=== PATIENT | female | born 1930 | race Caucasian/White ===

== ENCOUNTER 2016-08-29 09:31 | Outpatient (RCR) | payer MEDICARE ==
[2016-08-22 10:45] LABS: BASOPHILS # (AUTO) 0.1 10^3/uL (0.0-0.1); BASOPHILS % (AUTO) 2 % (0-10); EOSINOPHILS # (AUTO) 0.5 10^3/uL (0.0-0.3); EOSINOPHILS % (AUTO) 9 % (0-10); LYMPHOCYTES # (AUTO) 1.4 X 10^3 (1.0-4.0); LYMPHOCYTES % (AUTO) 30 % (12-44); MEAN CORPUSCULAR HEMOGLOBIN 30 PG (25-34); MEAN CORPUSCULAR HGB CONC 33 G/DL (32-36); MEAN CORPUSCULAR VOLUME 91 FL (80-99); MEAN PLATELET VOLUME 11.3 FL (7.4-10.4); MONOCYTES # (AUTO) 0.6 X 10^3 (0.0-1.0); MONOCYTES % (AUTO) 12 % (0-12); NEUTROPHILS # (AUTO) 2.3 X 10^3 (1.8-7.8); NEUTROPHILS % (AUTO) 47 % (42-75); PLATELET COUNT 152 10^3/uL (130-400); RED BLOOD COUNT 4.09 10^6/uL (4.35-5.85); RED CELL DISTRIBUTION WIDTH 14.3 % (10.0-14.5); WHITE BLOOD COUNT 4.8 10^3/uL (4.3-11.0)
[2016-08-22 11:01] LABS: ALBUMIN 3.1 GM/DL (3.2-4.5); BILIRUBIN,TOTAL 0.9 MG/DL (0.1-1.0); CREATININE SERUM 1.15 MG/DL (0.60-1.30); POTASSIUM 4.1 MMOL/L (3.6-5.0); TOTAL PROTEIN 5.2 GM/DL (6.4-8.2)
== END 2016-11-20 | disposition home or self-care (01) ==
LOC: ONC 09:31
PROVIDERS: ATTEND Internal Medicine Hematology & Oncology
DX: Z08 Encounter for follow-up examination after completed treatment for malignant neoplasm (principal); Z85.3 Personal history of malignant neoplasm of breast; I10 Essential (primary) hypertension
CPT/HCPCS: 36415; 80053; 85025; 86300; 99213

== ENCOUNTER 2017-09-04 09:47 | Outpatient (RCR) | payer MEDICARE ==
[2017-08-28 14:21] LABS: BASOPHILS # (AUTO) 0.1 10^3/uL (0.0-0.1); BASOPHILS % (AUTO) 1 % (0-10); EOSINOPHILS # (AUTO) 0.1 10^3/uL (0.0-0.3); EOSINOPHILS % (AUTO) 3 % (0-10); HEMATOCRIT 38 % (35-52); HEMOGLOBIN 12.6 G/DL (11.5-16.0); LYMPHOCYTES # (AUTO) 1.3 X 10^3 (1.0-4.0); LYMPHOCYTES % (AUTO) 29 % (12-44); MEAN CORPUSCULAR HEMOGLOBIN 29 PG (25-34); MEAN CORPUSCULAR HGB CONC 33 G/DL (32-36); MEAN CORPUSCULAR VOLUME 89 FL (80-99); MEAN PLATELET VOLUME 11.4 FL (7.4-10.4); MONOCYTES # (AUTO) 0.4 X 10^3 (0.0-1.0); MONOCYTES % (AUTO) 10 % (0-12); NEUTROPHILS # (AUTO) 2.5 X 10^3 (1.8-7.8); NEUTROPHILS % (AUTO) 57 % (42-75); PLATELET COUNT 156 10^3/uL (130-400); RED BLOOD COUNT 4.31 10^6/uL (4.35-5.85); RED CELL DISTRIBUTION WIDTH 14.4 % (10.0-14.5); WHITE BLOOD COUNT 4.3 10^3/uL (4.3-11.0)
[2017-08-28 14:38] LABS: ALBUMIN 3.3 GM/DL (3.2-4.5); BILIRUBIN,TOTAL 0.8 MG/DL (0.1-1.0); CALCIUM 9.4 MG/DL (8.5-10.1); CREATININE SERUM 1.25 MG/DL (0.60-1.30); POTASSIUM 4.1 MMOL/L (3.6-5.0); TOTAL PROTEIN 5.8 GM/DL (6.4-8.2)
== END 2017-11-26 | disposition home or self-care (01) ==
LOC: ONC 09:47
PROVIDERS: ATTEND Internal Medicine Hematology & Oncology
DX: Z08 Encounter for follow-up examination after completed treatment for malignant neoplasm (principal); Z85.3 Personal history of malignant neoplasm of breast; I10 Essential (primary) hypertension; Z79.899 Other long term (current) drug therapy; Z92.3 Personal history of irradiation
CPT/HCPCS: 36415; 80053; 85025; 86300; 99213

== ENCOUNTER → 2018-08-27 | Outpatient (CLI) | payer MEDICARE | LOC: RAD 09:33 | PROVIDERS: ATTEND Internal Medicine Hematology & Oncology | DX: Z12.31 Encounter for screening mammogram for malignant neoplasm of breast (principal) | CPT/HCPCS: 77067 ==

== ENCOUNTER 2018-09-04 12:55 | Outpatient (RCR) | payer MEDICARE ==
[2018-08-21 10:07] LABS: BASOPHILS % (AUTO) 1 % (0-10); EOSINOPHILS # (AUTO) 0.2 10^3/uL (0.0-0.3); EOSINOPHILS % (AUTO) 6 % (0-10); HEMATOCRIT 39 % (35-52); HEMOGLOBIN 12.9 G/DL (11.5-16.0); LYMPHOCYTES # (AUTO) 1.3 X 10^3 (1.0-4.0); LYMPHOCYTES % (AUTO) 31 % (12-44); MEAN CORPUSCULAR HEMOGLOBIN 29 PG (25-34); MEAN CORPUSCULAR HGB CONC 33 G/DL (32-36); MEAN CORPUSCULAR VOLUME 88 FL (80-99); MEAN PLATELET VOLUME 11.6 FL (7.4-10.4); MONOCYTES # (AUTO) 0.6 X 10^3 (0.0-1.0); MONOCYTES % (AUTO) 13 % (0-12); NEUTROPHILS # (AUTO) 2.2 X 10^3 (1.8-7.8); NEUTROPHILS % (AUTO) 50 % (42-75); PLATELET COUNT 149 10^3/uL (130-400); WHITE BLOOD COUNT 4.4 10^3/uL (4.3-11.0)
[2018-08-21 10:19] LABS: ALBUMIN 3.3 GM/DL (3.2-4.5); BILIRUBIN,TOTAL 0.8 MG/DL (0.1-1.0); CALCIUM 9.6 MG/DL (8.5-10.1); CREATININE SERUM 1.17 MG/DL (0.60-1.30); POTASSIUM 4.1 MMOL/L (3.6-5.0); TOTAL PROTEIN 5.9 GM/DL (6.4-8.2)
[2018-10-23] MEDS ORDERED: LISI-552 PO (09:05)
[2018-10-23] MEDS ORDERED: ALPR0.254 PO (09:05)
[2018-10-23] MEDS ORDERED: POTA10CA43 PO (09:05)
[2018-10-23] MEDS ORDERED: METO-387 PO (09:07)
[2018-10-23] MEDS ORDERED: CHOL200025 PO (09:07)
[2018-10-23] MEDS ORDERED: ASPI-983 PO (09:07)
[2018-10-23] MEDS ORDERED: AMLO2.5T4 PO (09:07)
[2018-10-31] MEDS ORDERED: POTA10CA43 PO (12:29)
[2018-10-31] MEDS ORDERED: METO-370 PO (12:29)
[2018-10-31] MEDS ORDERED: FURO40TA4 PO (12:29)
[2018-10-31] MEDS ORDERED: MAGN400T6 PO (12:29)
== END 2018-11-19 | disposition home or self-care (01) ==
LOC: ONC 12:55
PROVIDERS: ATTEND Internal Medicine Hematology & Oncology
DX: Z08 Encounter for follow-up examination after completed treatment for malignant neoplasm (principal); Z85.3 Personal history of malignant neoplasm of breast; I10 Essential (primary) hypertension; Z79.899 Other long term (current) drug therapy; Z92.3 Personal history of irradiation
CPT/HCPCS: 36415; 80053; 85025; 99213

== ENCOUNTER 2018-10-23 03:54 | Inpatient (IN) | payer MEDICARE ==
[2018-10-23] VITALS (7 sets, daily range): BP systolic 111–193; BP diastolic 56–92
[~2018-10-23] VITALS: Ht 152.4 cm; Wt 52.7 kg
[2018-10-23] MEDS ORDERED: NS IV 1000 ML 1,000 ML IV ONE (04:16)
[2018-10-23 04:28] LABS: BASOPHILS % (AUTO) 0 % (0-10); EOSINOPHILS # (AUTO) 0.1 10^3/uL (0.0-0.3); EOSINOPHILS % (AUTO) 3 % (0-10); HEMATOCRIT 43 % (35-52); LYMPHOCYTES # (AUTO) 0.5 X 10^3 (1.0-4.0); LYMPHOCYTES % (AUTO) 21 % (12-44); MEAN CORPUSCULAR HEMOGLOBIN 29 PG (25-34); MEAN CORPUSCULAR HGB CONC 33 G/DL (32-36); MEAN CORPUSCULAR VOLUME 89 FL (80-99); MEAN PLATELET VOLUME 12.1 FL (7.4-10.4); MONOCYTES % (AUTO) 0 % (0-12); NEUTROPHILS # (AUTO) 1.9 X 10^3 (1.8-7.8); NEUTROPHILS % (AUTO) 76 % (42-75); PLATELET COUNT 101 10^3/uL (130-400); RED CELL DISTRIBUTION WIDTH 14.9 % (10.0-14.5); WHITE BLOOD COUNT 2.5 10^3/uL (4.3-11.0)
[2018-10-23] MEDS ORDERED: ACETAMINOPHEN 500 MG TAB (TYLENOL) PO ONE (04:30)
[2018-10-23 04:45] LABS: INR 1.1 (0.8-1.4); PROTHROMBIN TIME PATIENT 14.7 SEC (12.2-14.7)
[2018-10-23 04:54] LABS: ALBUMIN 3.4 GM/DL (3.2-4.5); BILIRUBIN,TOTAL 1.1 MG/DL (0.1-1.0); CALCIUM 9.4 MG/DL (8.5-10.1); CREATININE SERUM 1.19 MG/DL (0.60-1.30); POTASSIUM 3.8 MMOL/L (3.6-5.0); TOTAL PROTEIN 6.3 GM/DL (6.4-8.2)
[2018-10-23 05:05] LABS: BILIRUBIN,URINE NEGATIVE (NEGATIVE); CLARITY,URINE CLEAR; COLOR,URINE YELLOW; GLUCOSE, URINE (UA) NEGATIVE (NEGATIVE); KETONES,URINE NEGATIVE (NEGATIVE); LEUKOCYTE ESTERASE ,URINE 1+ (NEGATIVE); NITRITE,URINE NEGATIVE (NEGATIVE); PH,URINE 5 (5-9); PROTEIN,URINE 2+ (NEGATIVE); UROBILINOGEN,URINE NORMAL (NORMAL)
[2018-10-23 05:09] LABS: BACTERIA,URINE TRACE /HPF
[2018-10-23] MEDS ORDERED: LACTATED RINGERS 1,000 ML IV ONE (05:17)
[2018-10-23] MEDS ORDERED: RT-ALBUTEROL/IPRATROPIUM 3 ML (DUONEB) VIAL INH ONE (05:30)
[2018-10-23] MEDS ORDERED: IBUPROFEN TABLET 200 MG TAB PO ONE ×2 (05:46→06:00)
[2018-10-23] MEDS ORDERED: PIPERACILLIN/TAZOBACTAM (BULK) 4.5 GM in NS (IVPB) 100 ML IV ONE (06:30)
--- NOTE | 2018-10-23 06:33 | ED General ---
General Chief Complaint: Fever-Adult/Adol Stated Complaint: NAUSEA,CHILLING Nursing Triage Note: WOKE UP WITH CEVER AND CHILLS TONIGHT, STATES SHE HAS BEEN SICK (NAUSEA) FOR A COUPLE OF DAYS. Nursing Sepsis Screen: No Definite Risk Source of Information: Patient Exam Limitations: No Limitations History of Present Illness Date Seen by Provider: Oct 23, 2018 Time Seen by Provider: 04:07 Initial Comments This 87-year-old woman presents to the emergency room with intense fever and chills. She has been nauseated for a couple of days and then became acutely ill with a fever and chills tonight. She denies any significant pain, vomiting, or cough. She is short of breath and wheezing. She is mildly hypoxic on arrival. She denies any history of pulmonary problems. Patient was mildly hypoxic and was provided nasal cannula supplemental oxygen. Respiratory symptoms improved after DuoNeb treatment. Allergies and Home Medications Allergies Coded Allergies: Severiano Known Allergies (Verified Allergy, Unknown, 09/08/05) Home Medications Alprazolam 0.25 Mg Tablet, 0.5 TAB PO DAILY PRN for ANXIETY, (Reported) Amlodipine Besylate 2.5 Mg Tablet, 2.5 MG PO DAILY, (Reported) Aspirin 81 Mg Tablet.dr, 81 MG PO DAILY, (Reported) Cholecalciferol (Vitamin D3) 2,000 Unit Tablet, 2,000 UNIT PO DAILY, (Reported) Lisinopril 20 Mg Tablet, 20 MG PO HS, (Reported) Metoprolol Succinate 25 Mg Tab.er.24h, 25 MG PO DAILY, (Reported) Potassium Chloride 10 Meq Capsule.er, 10 MEQ PO Q48H, (Reported) Patient Home Medication List Home Medication List Reviewed: Yes Review of Systems Review of Systems Constitutional: see HPI EENTM: no symptoms reported Respiratory: see HPI Cardiovascular: no symptoms reported Gastrointestinal: see HPI Genitourinary: no symptoms reported : No Skin: no symptoms reported Psychiatric/Neurological: No Symptoms Reported Hematologic/Lymphatic: No Symptoms Reported Immunological/Allergic: no symptoms reported Past Eeyorar-Kokgxv-Uxoggz Hx Past Med/Social Hx: Reviewed and Corrections made Patient Social History Alcohol Use: Denies Use Recreational Drug Use: No 2nd Hand Smoke Exposure: No Recent Foreign Travel: No Contact w/Someone Who Travel: No Recent Infectious Disease Expo: No Physical Abuse: No Sexual Abuse: No Mistreated: No Fear: No Past Medical History Surgeries: No Respiratory: No Cardiac: Yes Atrial Fibrillation, Hypertension Neurological: No : No Reproductive Disorders: No Genitourinary: No Gastrointestinal: No Musculoskeletal: No Endocrine: No HEENT: No Cancer: No Psychosocial: No Physical Exam Vital Signs Vital Signs - First Documented 10/23/18 10/23/18 04:00 04:05 Temp 101.8 Pulse 104 Resp 26 B/P (MAP) 193/92 (125) Pulse Ox 96 O2 Delivery Nasal Cannula O2 Flow Rate 3.00 FiO2 96 Capillary Refill : Less Than 3 Seconds Height, Weight, BMI Height: 5'" Weight: 120lbs. oz. 54.831079uu; BMI Method:Stated General Appearance: WD/WN, Moderate Distress HEENT: PERRL/EOMI, Normal ENT Inspection, Pharynx Normal Neck: Normal Inspection Respiratory: Decreased Breath Sounds, Wheezing (subtle), Other (tachypnea) Cardiovascular: No Edema, No Murmur Gastrointestinal: Normal Bowel Sounds, Non Tender, Soft Extremity: Normal Inspection, Non Tender, No Pedal Edema Neurologic/Psychiatric: Alert, Oriented x3, No Motor/Sensory Deficits, Normal Mood/Affect, bench molder II-XII Norm as Tested Skin: Normal Color, Warm/Dry Focused Exam Lactate Level 10/23/18 04:10: Lactic Acid Level 4.07*H 10/23/18 06:11: Lactic Acid Level 3.58*H Lactic Acid Level Progress/Results/Core Measures Suspected Sepsis Recent Fever Within 48 Hours: Yes Infection Criteria Present: Suspected New Infection New/Unexplained Altered Menta: No Sepsis Screen: No Definite Risk SIRS Temperature:102.5 Pulse: 107 Respiratory Rate: 17 Laboratory Tests 10/23/18 04:10: White Blood Count 2.5L Blood Pressure 160 /76 Mean: 104 10/23/18 04:10: Lactic Acid Level 4.07*H 10/23/18 06:11: Lactic Acid Level 3.58*H Laboratory Tests 10/23/18 04:10: Creatinine 1.19, INR Comment 1.1, Platelet Count 101L, Total Bilirubin 1.1H Results/Orders Lab Results Laboratory Tests Test 10/23/18 04:10 10/23/18 05:00 10/23/18 06:11 10/23/18 14:30 Range/Units White Blood Count 2.5 L 4.3-11.0 10^3/uL Red Blood Count 4.83 4.35-5.85 10^6/uL Hemoglobin 14.0 11.5-16.0 G/DL Hematocrit 43 35-52 % Mean Corpuscular Volume 89 80-99 FL Mean Corpuscular Hemoglobin 29 25-34 PG Mean Corpuscular Hemoglobin Concent 33 32-36 G/DL Red Cell Distribution Width 14.9 H 10.0-14.5 % Platelet Count 101 L 130-400 10^3/uL Mean Platelet Volume 12.1 H 7.4-10.4 FL Neutrophils (%) (Auto) 76 H 42-75 % Lymphocytes (%) (Auto) 21 12-44 % Monocytes (%) (Auto) 0 0-12 % Eosinophils (%) (Auto) 3 0-10 % Basophils (%) (Auto) 0 0-10 % Neutrophils # (Auto) 1.9 1.8-7.8 X 10^3 Lymphocytes # (Auto) 0.5 L 1.0-4.0 X 10^3 Monocytes # (Auto) 0.0 0.0-1.0 X 10^3 Eosinophils # (Auto) 0.1 0.0-0.3 10^3/uL Basophils # (Auto) 0.0 0.0-0.1 10^3/uL Prothrombin Time 14.7 12.2-14.7 SEC INR Comment 1.1 0.8-1.4 Activated Partial Thromboplast Time 31 24-35 SEC Sodium Level 143 135-145 MMOL/L Potassium Level 3.8 3.6-5.0 MMOL/L Chloride Level 109 H 98-107 MMOL/L Carbon Dioxide Level 20 L 21-32 MMOL/L Anion Gap 14 5-14 MMOL/L Blood Urea Nitrogen 15 7-18 MG/DL Creatinine 1.19 0.60-1.30 MG/DL Estimat Glomerular Filtration Rate 43 BUN/Creatinine Ratio 13 Glucose Level 109 H 70-105 MG/DL Lactic Acid Level 4.07 *H 3.58 *H 0.50-2.00 MMOL/L Calcium Level 9.4 8.5-10.1 MG/DL Corrected Calcium 9.9 8.5-10.1 MG/DL Total Bilirubin 1.1 H 0.1-1.0 MG/DL Aspartate Amino Transf (AST/SGOT) 25 5-34 U/L Alanine Aminotransferase (ALT/SGPT) 12 0-55 U/L Alkaline Phosphatase 106 40-136 U/L C-Reactive Protein High Sensitivity 0.82 H 0.00-0.50 MG/DL Total Protein 6.3 L 6.4-8.2 GM/DL Albumin 3.4 3.2-4.5 GM/DL Urine Color YELLOW Urine Clarity CLEAR Urine pH 5 5-9 Urine Specific [place] 1.010 L 1.016-1.022 Urine Protein 2+ H NEGATIVE Urine Glucose (UA) NEGATIVE NEGATIVE Urine Ketones NEGATIVE NEGATIVE Urine Nitrite NEGATIVE NEGATIVE Urine Bilirubin NEGATIVE NEGATIVE Urine Urobilinogen NORMAL NORMAL MG/DL Urine Leukocyte Esterase 1+ H NEGATIVE Urine RBC (Auto) 5+ H NEGATIVE Urine RBC 10-25 H /HPF Urine WBC 2-5 /HPF Urine Squamous Epithelial Cells 2-5 /HPF Urine Crystals NONE /LPF Urine Bacteria TRACE /HPF Urine Casts NONE /LPF Urine Mucus NEGATIVE /LPF Urine Culture Indicated CULTURE PENDING Troponin I 1.690 *H <0.028 NG/ML My Orders Orders - LAURE PEREZ MD Cbc With Automated Diff (10/23/18 04:05) Comprehensive Metabolic Panel (10/23/18 04:05) Blood Culture (10/23/18 04:05) Sputum Culture (10/23/18 04:05) Urinalysis (10/23/18 04:05) Urine Culture (10/23/18 04:05) Protime With Inr (10/23/18 04:05) Partial Thromboplastin Time (10/23/18 04:05) Chest 1 View, Ap/Pa Only (10/23/18 04:05) Ed Iv/Invasive Line Start (10/23/18 04:05) Ed Iv/Invasive Line Start (10/23/18 04:05) O2 (10/23/18 04:05) Remove Rings In Anticipation O (10/23/18 04:05) Lactic Acid Analyzer (10/23/18 04:05) Ekg Tracing (10/23/18 04:16) Monitor-Rhythm Ecg Trace Only (10/23/18 04:16) Ns Iv 1000 Ml (Sodium Chloride 0.9%) (10/23/18 04:16) Acetaminophen Tablet (Tylenol Tablet) (10/23/18 04:30) Hs C Reactive Protein (10/23/18 05:15) Ed Iv/Invasive Line Start (10/23/18 05:17) Lactated Ringers (Lr 1000 Ml Iv Solution (10/23/18 05:17) Albuterol/Ipra Inhalation Soln (Duoneb I (10/23/18 05:30) Svn Small Volume Nebulizer (10/23/18 05:18) Ibuprofen Tablet (Motrin Tablet) (10/23/18 06:00) Ibuprofen Tablet (Motrin Tablet) (10/23/18 05:46) Piperacillin/Tazobactam (Bulk) (Zosyn In (10/23/18 06:30) Ns (Ivpb) (Sodium Chloride 0.9% Ivpb Bag (10/23/18 06:41) Piperacillin Sodium/Tazobactam (Zosyn Vi (10/23/18 06:41) Medications Given in ED Vital Signs/I&O 10/23/18 10/23/18 10/23/18 10/23/18 09:50 12:00 : 16:00 Temp 98.8 100.1 Pulse 78 74 Resp 20 20 B/P (MAP) 115/68 (84) 111/66 (81) Pulse Ox 98 97 96 95 O2 Delivery Nasal Cannula Nasal Cannula Nasal Cannula Room Air O2 Flow Rate 3.00 2.00 2.00 10/23/18 20:00 Temp 99.0 Pulse 80 Resp 20 B/P (MAP) 118/56 (76) Pulse Ox 95 O2 Delivery Room Air Capillary Refill : Less Than 3 Seconds Blood Pressure Mean: 104 Progress Note : Progress Note Patient was promptly evaluated in the emergency room. Septic workup was pursued. No source of infection was identified. However, because of fever and elevated lactic acid, she was empirically treated with Zosyn after blood cultures were collected. A liter of LR was administered. Tylenol and ibuprofen were given for fever. She was feeling markedly improved at the time of admission. ECG Initial ECG Impression Date: Oct 23, 2018 Initial ECG Impression Time: 05:19 Initial ECG Rate: 107 Initial ECG Rhythm: S.Tach Comment Sinus tachycardia with no ST elevation. Borderline ST depression. No axis deviation or abnormal intervals. Diagnostic Imaging Diagonstic Imaging: Xray Plain Films/CT/US/NM/MRI: chest Comments Chest x-ray viewed by me. Report not yet available. No evidence of consolidation or infiltrate. Departure Communication (Admissions) Time/Spoke to Admitting Phy: 06:15 Dr. Pickering Impression Primary Impression: Febrile illness, acute Additional Impressions: Bronchospasm Hypoxia Leukopenia Qualified Codes: D72.819 - Decreased white blood cell count, unspecified Disposition: ADMITTED INPATIENT Condition: Improved Admissions Decision to Admit Reason: Admit from ER (General) Decision to Admit/Date: Oct 23, 2018 Time/Decision to Admit Time: 04:05 Departure-Patient Inst. Decision time for Depature: 04:05 Referrals: CARRIE PICKERING DO (PCP/Family) Primary Care Physician LAURE PEREZ MD Oct 23, 2018 06:33
[2018-10-23] MEDS ORDERED: PIPERACILLIN/TAZO 4.5 GM VIAL (ZOSYN) IV ONE (06:41)
[2018-10-23] MEDS ORDERED: NS (IVPB) 100 ML ONE (06:41)
--- NOTE | 2018-10-23 06:49 | Diagnostic Imaging Report ---
INDICATION: Febrile. Chills. COMPARISON: 05/12/2009. FINDINGS: There is again noted mild obstructive interstitial lung disease with apical pleural thickening. Heart is upper limits of normal. No acute infiltrates have developed. No pleural effusion. No hilar adenopathy. No bony changes have occurred. IMPRESSION: Stable chest with obstructive interstitial lung disease. Dictated by: Dictated on workstation # [id number]
[2018-10-23] MEDS ORDERED: ACETAMINOPHEN 500 MG TAB (TYLENOL) PO PRN (08:00)
[2018-10-23] MEDS ORDERED: IBUPROFEN TABLET 200 MG TAB PO PRN (08:00)
[2018-10-23] MEDS ORDERED: PIPERACILLIN/TAZO 4.5 GM/NS 100 ML IV NR ×2 (08:00)
[2018-10-23] MEDS: NS IV 1000 ML 1,000 ML IV SCH ×2 (08:57→18:57)
[2018-10-23] MEDS ORDERED: LISI-552 PO (09:05)
[2018-10-23] MEDS ORDERED: ALPR0.254 PO (09:05)
[2018-10-23] MEDS ORDERED: POTA10CA43 PO (09:05)
[2018-10-23] MEDS ORDERED: ASPI-983 PO (09:07)
[2018-10-23] MEDS ORDERED: METO-387 PO (09:07)
[2018-10-23] MEDS ORDERED: CHOL200025 PO (09:07)
[2018-10-23] MEDS ORDERED: AMLO2.5T4 PO (09:07)
[2018-10-23] MEDS: RT-ALBUTEROL/IPRATROPIUM 3 ML (DUONEB) VIAL INH SCH ×4 (09:50→21:42)
--- NOTE | 2018-10-23 10:00 | NUR ---
DUE TO O2 SAT OF 98% RT DECREASED O2 FROM 3 L TO 2 L NC
--- NOTE | 2018-10-23 10:04 | NUR ---
Pt's sister Clari Perez requested that I visit the pt. The pt is [employer] and a member of [facility] in [place], [place]. When I offered to contact her Stone Carriage Operator, she gratefully accepted. The pt was not feeling well at the beginning of our visit, and pushed herself to eat some siddiqui and toast. Before the conclusion of our time together, she said she was already feeling relief. The pt hopes to be discharged tomorrow, but reflected that she is trusting God to care for her needs and give her patience for her healing process. The pt is , and has strong emotional and spiritual support among her siblings. Her sister Clari was present throughout the visit, and demonstrated positive, supportive attitude. I contacted Fr. Luis at the number for [facility] in [place] (he served both [facility]). He said he would try to call the pt and would try to visit. I relayed this information to the pt. I also replaced the crucifix in her, which I observed was missing. The pt and Clari thanked me for this, stating they find the crucifix comforting.
[2018-10-23] MEDS ORDERED: RT-ALBUTEROL/IPRATROPIUM 3 ML (DUONEB) VIAL INH PRN (12:00)
[2018-10-23] MEDS ORDERED: PANTOPRAZOLE 40 MG (PROTONIX) VIAL IV NR (12:45)
[2018-10-23] MEDS ORDERED: ENOXAPARIN 40 MG/0.4 ML (LOVENOX) SYR SC SCH (12:45)
[2018-10-23] MEDS ORDERED: ENOXAPARIN 30 MG/0.3 ML (LOVENOX) SYR SC SCH (13:00)
--- NOTE | 2018-10-23 14:18 | Diagnostic Imaging Report ---
Indication: Hypoxia. Time of exam: 12:38 PM Correlation is made with prior study of 10/23/2018. The heart size is stable. Lungs are hyperinflated consistent with COPD. No infiltrates are seen. No effusion or pneumothorax is identified. Impression: COPD. No acute feature is detected. Dictated by: Dictated on workstation # [id number]
--- NOTE | 2018-10-23 14:27 | NUR ---
PATIENT IS NOW ON RA AND DOING GOOD
[2018-10-23] MEDS: PIPERACILLIN/TAZO 4.5 GM/NS 100 ML IV SCH ×4 (17:18→23:50)
[2018-10-23] MEDS ORDERED: ASPIRIN 325 MG (5 GR) TABLET PO NR (17:30)
[2018-10-23] MEDS ORDERED: ENOXAPARIN 30 MG/0.3 ML (LOVENOX) SYR SC NR (17:30)
--- NOTE | 2018-10-23 19:11 | Consultation-Cardiology ---
HPI-Cardiology Cardiology Consultation Date of Consultation 10/23/18 Date of Admission Time Seen by Provider: 19:06 Indication: Chest pain HPI 87 years old lady with history of paroxysmal atrial fibrillation in the remote past maintained on beta blockers. Woke up multiple times to go the bathroom, had fever and chills, came into the emergency room for evaluation she was admitted for possible sepsis. Started on antibiotic,. To be mildly short of breath, had mild chest pain left-sided dull achiness in the morning that has resolved by itself. Denied any similar episode or recent episode of chest pain denied any palpitation recently. No syncope or near syncopal episodes part of her workup was a troponin which was elevated, had also elevated lactic acid. Home Medications & Allergies Allergies: Coded Allergies: NKANo Known Allergies (Verified Allergy, Unknown, 09/08/05) Home Medication List Reviewed: Yes KOT-Fajely-Styfsr Hx Patient Social History Marital Status: Employed/Student: retired Alcohol Use: Denies Use Recreational Drug Use: No 2nd Hand Smoke Exposure: No Recent Foreign Travel: No Recent Infectious Disease Expo: No Past Medical History Discussed below Review of Systems-General Review of Systems Constitutional: no symptoms reported, see HPI, fever, malaise, weakness EENTM: see HPI Respiratory: see HPI; No cough; dyspnea on exertion; No hemoptysis, No orthopnea, No phlegm, No short of breath, No stridor, No wheezing, No other Cardiovascular: see HPI, chest pain; No edema, No Hx of Intervention, No pa lpitations, No syncope, No vascular heart diseas, No other Gastrointestinal: no symptoms reported, see HPI Genitourinary: no symptoms reported, see HPI : No Skin: no symptoms reported, see HPI Psychiatric/Neurological: No Symptoms Reported, See HPI Reviewed Test Results Reviewed Test Results Lab Laboratory Tests Test 10/23/18 04:10 10/23/18 05:00 10/23/18 06:11 10/23/18 14:30 Range/Units White Blood Count 2.5 L 4.3-11.0 10^3/uL Red Blood Count 4.83 4.35-5.85 10^6/uL Hemoglobin 14.0 11.5-16.0 G/DL Hematocrit 43 35-52 % Mean Corpuscular Volume 89 80-99 FL Mean Corpuscular Hemoglobin 29 25-34 PG Mean Corpuscular Hemoglobin Concent 33 32-36 G/DL Red Cell Distribution Width 14.9 H 10.0-14.5 % Platelet Count 101 L 130-400 10^3/uL Mean Platelet Volume 12.1 H 7.4-10.4 FL Neutrophils (%) (Auto) 76 H 42-75 % Lymphocytes (%) (Auto) 21 12-44 % Monocytes (%) (Auto) 0 0-12 % Eosinophils (%) (Auto) 3 0-10 % Basophils (%) (Auto) 0 0-10 % Neutrophils # (Auto) 1.9 1.8-7.8 X 10^3 Lymphocytes # (Auto) 0.5 L 1.0-4.0 X 10^3 Monocytes # (Auto) 0.0 0.0-1.0 X 10^3 Eosinophils # (Auto) 0.1 0.0-0.3 10^3/uL Basophils # (Auto) 0.0 0.0-0.1 10^3/uL Prothrombin Time 14.7 12.2-14.7 SEC INR Comment 1.1 0.8-1.4 Activated Partial Thromboplast Time 31 24-35 SEC Sodium Level 143 135-145 MMOL/L Potassium Level 3.8 3.6-5.0 MMOL/L Chloride Level 109 H 98-107 MMOL/L Carbon Dioxide Level 20 L 21-32 MMOL/L Anion Gap 14 5-14 MMOL/L Blood Urea Nitrogen 15 7-18 MG/DL Creatinine 1.19 0.60-1.30 MG/DL Estimat Glomerular Filtration Rate 43 BUN/Creatinine Ratio 13 Glucose Level 109 H 70-105 MG/DL Lactic Acid Level 4.07 *H 3.58 *H 0.50-2.00 MMOL/L Calcium Level 9.4 8.5-10.1 MG/DL Corrected Calcium 9.9 8.5-10.1 MG/DL Total Bilirubin 1.1 H 0.1-1.0 MG/DL Aspartate Amino Transf (AST/SGOT) 25 5-34 U/L Alanine Aminotransferase (ALT/SGPT) 12 0-55 U/L Alkaline Phosphatase 106 40-136 U/L C-Reactive Protein High Sensitivity 0.82 H 0.00-0.50 MG/DL Total Protein 6.3 L 6.4-8.2 GM/DL Albumin 3.4 3.2-4.5 GM/DL Urine Color YELLOW Urine Clarity CLEAR Urine pH 5 5-9 Urine Specific [place] 1.010 L 1.016-1.022 Urine Protein 2+ H NEGATIVE Urine Glucose (UA) NEGATIVE NEGATIVE Urine Ketones NEGATIVE NEGATIVE Urine Nitrite NEGATIVE NEGATIVE Urine Bilirubin NEGATIVE NEGATIVE Urine Urobilinogen NORMAL NORMAL MG/DL Urine Leukocyte Esterase 1+ H NEGATIVE Urine RBC (Auto) 5+ H NEGATIVE Urine RBC 10-25 H /HPF Urine WBC 2-5 /HPF Urine Squamous Epithelial Cells 2-5 /HPF Urine Crystals NONE /LPF Urine Bacteria TRACE /HPF Urine Casts NONE /LPF Urine Mucus NEGATIVE /LPF Urine Culture Indicated CULTURE PENDING Troponin I 1.690 *H <0.028 NG/ML Physical Exam Physical Exam Vital Signs Vital Signs - First Documented 10/23/18 10/23/18 04:00 04:05 Temp 101.8 Pulse 104 Resp 26 B/P (MAP) 193/92 (125) Pulse Ox 96 O2 Delivery Nasal Cannula O2 Flow Rate 3.00 FiO2 96 Capillary Refill : Less Than 3 Seconds Height, Weight, BMI Height: 5'0.00" Weight: 116lbs. 4.0oz. 52.616690ft; 22.7 BMI Method:Stated General Appearance: No Apparent Distress, WD/WN Eyes: Bilateral Eye Normal Inspection, Bilateral Eye PERRL, Bilateral Eye EOMI HEENT: PERRL/EOMI, TMs Normal, Normal ENT Inspection, Pharynx Normal, Moist Mucous Membranes Neck: Full Range of Motion, Normal Inspection, Non Tender, Supple, Carotid Bruit Respiratory: Chest Non Tender, Normal Breath Sounds, No Accessory Muscle Use, No Respiratory Distress Cardiovascular: Regular Rate, Rhythm, No Edema, Normal Peripheral Pulses, Systolic Murmur, Gallop/S3 Gastrointestinal: Normal Bowel Sounds, No Organomegaly, No Pulsatile Mass, Non Tender, Soft Back: Normal Inspection, No CVA Tenderness, No Vertebral Tenderness Extremity: Normal Capillary Refill, Normal Inspection, Normal Range of Motion, Non Tender, No Calf Tenderness, No Pedal Edema Neurologic/Psychiatric: Alert, Oriented x3, No Motor/Sensory Deficits, Normal Mood/Affect Skin: Normal Color, Warm/Dry Lymphatic: No Adenopathy A/P-Cardiology Admission Diagnosis Fever Elevated troponin level Hypertension Paroxysmal atrial fibrillation Assessment/Plan Fever of unknown origin, chest x-ray is negative, started on empiric antibiotic, managed by Dr. Pickering next Elevated troponin level. EKG showed minimal ST depression in the lateral leads. I will evaluate 2-D echocardiogram started on aspirin and Lovenox and we'll monitor EKG and cardiac enzyme trend Personal history of paroxysmal atrial fibrillation reported episode of atrial fibrillation about 2 years ago that improved after taking metoprolol, reporting improvement no further episode of palpitation, has been following with a show card letterer in [place], not on anticoagulation. Hypertension, maintained on Norvasc, lisinopril and metoprolol, restart home medication and continue to monitor Recent toe infection, had good dorsalis pedis pulse, no signs of infection at this time. Clinical Quality Measures DVT/VTE Risk/Contraindication: Risk Factor Score Per Nursin RFS Level Per Nursing on Admit: 4+=Very High DAVID GRAYSON MD Oct 23, 2018 19:11
[2018-10-23] MEDS ORDERED: lisINopril 20 MG (PRINIVIL) TABLET PO SCH (21:00)
--- NOTE | 2018-10-23 21:06 | History & Physicial ---
History of Present Illness History of Present Illness Reason for visit/HPI This is an 87 year old female who presented to the emergency room with fever, chills and weakness. She was also complaining of some mild shortness of air. She was febrile in the emergency room with a temperature of 101.8. She was mildly hypoxic with an oxygen saturation at 88% when she arrived. Her CXR showed no infiltrate but her WBC count was low at 2.5. There was concern of possible early sepsis so it was decided to admit her for empiric antibiotics and monitoring. She complained of some mild left sided chest soreness after she was admitted so a repeat EKG and cardiac enzymes were ordered. Her EKG showed some mild ST segment depression which had not changed from admission but her troponin was elevated at 1.6. She does have a previous history of atrial fibrillation but states she has only had one episode that she knows of and she converted back to a NSR with addition of a beta charles. Date of Admission Oct 23, 2018 at 07:11 Date Seen by a Provider: Oct 23, 2018 Time Seen by a Provider: 12:30 I consulted on this patient on 10/23/18 20:59 Attending Physician Kyleigh Pickering DO Admitting Physician Kyleigh Pickering DO Consult Allergies and Home Medications Allergies Coded Allergies: NKANo Known Allergies (Verified Allergy, Unknown, 09/08/05) Home Medications Alprazolam 0.25 Mg Tablet, 0.5 TAB PO DAILY PRN for ANXIETY, (Reported) Amlodipine Besylate 2.5 Mg Tablet, 2.5 MG PO DAILY, (Reported) Aspirin 81 Mg Tablet.dr, 81 MG PO DAILY, (Reported) Cholecalciferol (Vitamin D3) 2,000 Unit Tablet, 2,000 UNIT PO DAILY, (Reported) Lisinopril 20 Mg Tablet, 20 MG PO HS, (Reported) Metoprolol Succinate 25 Mg Tab.er.24h, 25 MG PO DAILY, (Reported) Potassium Chloride 10 Meq Capsule.er, 10 MEQ PO Q48H, (Reported) Patient Home Medication List Home Medication List Reviewed: Yes Past Dyoshcg-Yrbius-Gtmsug Hx Patient Social History Marrital Status: Employed/Student: retired Alcohol Use: Denies Use Recreational Drug Use: No 2nd Hand Smoke Exposure: No Recent Foreign Travel: No Contact w/other who traveled: No Recent Infectious Disease Expo: No Review of Systems Constitutional: chills, diaphoresis, fever, weakness EENTM: No see HPI, No no symptoms reported, No ear discharge, No hearing loss, No ear pain, No blurred vision, No double vision, No eye pain, No tearing, No vision loss, No dental problems, No hoarseness, No mouth pain, No mouth swelling, No epistaxis, No nose congestion, No nose pain, No throat pain, No throat swelling, No other Respiratory: short of breath, wheezing Cardiovascular: chest pain Gastrointestinal: nausea Genitourinary: frequency Musculoskeletal: muscle weakness Skin: no symptoms reported Psychiatric/Neurological: Weakness Physical Exam Vital Signs Vital Signs - First Documented 10/23/18 10/23/18 04:00 04:05 Temp 101.8 Pulse 104 Resp 26 B/P (MAP) 193/92 (125) Pulse Ox 96 O2 Delivery Nasal Cannula O2 Flow Rate 3.00 FiO2 96 Capillary Refill : Less Than 3 Seconds Height, Weight, BMI Height: 5'0.00" Weight: 116lbs. 4.0oz. 52.122390kb; 22.7 BMI Method:Stated General Appearance: Mild Distress HEENT: Normal ENT Inspection Neck: Supple Respiratory: Lungs Clear Cardiovascular: Regular Rate, Rhythm, Systolic Murmur Gastrointestinal: Normal Bowel Sounds, Non Tender, Soft Rectal: Deferred Back: No CVA Tenderness Extremity: Non Tender, No Calf Tenderness, No Pedal Edema Neurologic/Psychiatric: Alert, Oriented x3 Skin: Warm/Dry Comments Laboratory Tests 10/23/18 04:10: White Blood Count 2.5L, Red Blood Count 4.83, Hemoglobin 14.0, Hematocrit 43, Mean Corpuscular Volume 89, Mean Corpuscular Hemoglobin 29, Mean Corpuscular Hemoglobin Concent 33, Red Cell Distribution Width 14.9H, Platelet Count 101L, Mean Platelet Volume 12.1H, Neutrophils (%) (Auto) 76H, Lymphocytes (%) (Auto) 21, Monocytes (%) (Auto) 0, Eosinophils (%) (Auto) 3, Basophils (%) (Auto) 0, Neutrophils # (Auto) 1.9, Lymphocytes # (Auto) 0.5L, Monocytes # (Auto) 0.0, Eosinophils # (Auto) 0.1, Basophils # (Auto) 0.0, Prothrombin Time 14.7, INR Comment 1.1, Activated Partial Thromboplast Time 31, Sodium Level 143, Potassium Level 3.8, Chloride Level 109H, Carbon Dioxide Level 20L, Anion Gap 14, Blood Urea Nitrogen 15, Creatinine 1.19, Estimat Glomerular Filtration Rate 43, BUN/Creatinine Ratio 13, Glucose Level 109H, Lactic Acid Level 4.07*H, Calcium Level 9.4, Corrected Calcium 9.9, Total Bilirubin 1.1H, Aspartate Amino Transf (AST/SGOT) 25, Alanine Aminotransferase (ALT/SGPT) 12, Alkaline Phosphatase 106, C-Reactive Protein High Sensitivity 0.82H, Total Protein 6.3L, Albumin 3.4 10/23/18 05:00: Urine Color YELLOW, Urine Clarity CLEAR, Urine pH 5, Urine Specific [place] 1.010L, Urine Protein 2+H, Urine Glucose (UA) NEGATIVE, Urine Ketones NEGATIVE, Urine Nitrite NEGATIVE, Urine Bilirubin NEGATIVE, Urine Urobilinogen NORMAL, Urine Leukocyte Esterase 1+H, Urine RBC (Auto) 5+H, Urine RBC 10-25H, Urine WBC 2-5, Urine Squamous Epithelial Cells 2-5, Urine Crystals NONE, Urine Bacteria TRACE, Urine Casts NONE, Urine Mucus NEGATIVE, Urine Culture Indicated CULTURE PENDING 10/23/18 06:11: Lactic Acid Level 3.58*H 10/23/18 14:30: Troponin I 1.690*H Assessment/Plan Assessment and Plan 1. Febrile Illness with Neutropenia/SIRS--admit, cover with zosyn, pancultures, monitor lactic acid 2. Hypertension--BP currently stable so will monitor BP and restart home meds if needed 3. Chest Pain with Elevated Troponin--only one episode of CP so will repeat cardiac enzymes, check 2-D ECHO and consult cardiology 4. Hypoxia--on oxygen 5. History of Paroxysmal Atrial Fibrillation--in NSR and reports only 1 episode about 2 years ago Admission Diagnosis Admission Status: Inpatient Order (span 2 midnights) Reason for Inpatient Admission: Will need antibiotics until culture finals back as well as monitoring of WBC count and temperature Clinical Quality Measures DVT/VTE Risk/Contraindication: Risk Factor Score Per Nursin RFS Level Per Nursing on Admit: 4+=Very High KYLEIGH PICKERING DO Oct 23, 2018 21:06
[2018-10-24 00:59] VITALS: BP 111/58
[2018-10-24] MEDS: RT-ALBUTEROL/IPRATROPIUM 3 ML (DUONEB) VIAL INH SCH ×6 (01:38→22:47)
[2018-10-24] MEDS: NS IV 1000 ML 1,000 ML IV SCH ×2 (02:37→09:33)
[2018-10-24 04:40] VITALS: BP 113/54
[2018-10-24 05:45] LABS: BASOPHILS % (AUTO) 0 % (0-10); EOSINOPHILS % (AUTO) 0 % (0-10); HEMATOCRIT 34 % (35-52); HEMOGLOBIN 11.1 G/DL (11.5-16.0); LYMPHOCYTES # (AUTO) 0.9 X 10^3 (1.0-4.0); LYMPHOCYTES % (AUTO) 4 % (12-44); MEAN CORPUSCULAR HEMOGLOBIN 29 PG (25-34); MEAN CORPUSCULAR HGB CONC 33 G/DL (32-36); MEAN CORPUSCULAR VOLUME 88 FL (80-99); MEAN PLATELET VOLUME 12.4 FL (7.4-10.4); MONOCYTES # (AUTO) 1.1 X 10^3 (0.0-1.0); MONOCYTES % (AUTO) 5 % (0-12); NEUTROPHILS # (AUTO) 20.4 X 10^3 (1.8-7.8); NEUTROPHILS % (AUTO) 91 % (42-75); PLATELET COUNT 81 10^3/uL (130-400); RED CELL DISTRIBUTION WIDTH 15.2 % (10.0-14.5); WHITE BLOOD COUNT 22.3 10^3/uL (4.3-11.0)
[2018-10-24 05:59] LABS: ANISOCYTOSIS SLIGHT; BAND NEUTROPHILS 17 %; BASOPHILS % (MANUAL) 0 %; ELLIPT/OVALOCYTES SLIGHT; EOSINOPHILS % (MANUAL) 0 %; LYMPHOCYTES % (MANUAL) 2 %; MONOCYTES % (MANUAL) 1 %; NEUTROPHILS % (MANUAL) 80 %; POIKILOCYTOSIS SLIGHT; TOXIC GRANULATION/VACUOLAZATIO 1+
[2018-10-24 06:24] LABS: ALBUMIN 2.3 GM/DL (3.2-4.5); BILIRUBIN,TOTAL 1.1 MG/DL (0.1-1.0); CALCIUM 7.5 MG/DL (8.5-10.1); CREATININE SERUM 1.61 MG/DL (0.60-1.30); POTASSIUM 3.4 MMOL/L (3.6-5.0); TOTAL PROTEIN 4.2 GM/DL (6.4-8.2)
[2018-10-24] MEDS: PIPERACILLIN/TAZO 4.5 GM/NS 100 ML IV SCH ×6 (06:38→21:47)
[2018-10-24 07:31] VITALS: BP 123/58
[2018-10-24 08:10] LABS: HEMOGLOBIN 10.9 G/DL (11.5-16.0); MEAN PLATELET VOLUME 12.4 FL (7.4-10.4); RED CELL DISTRIBUTION WIDTH 15.5 % (10.0-14.5); WHITE BLOOD COUNT 22.4 10^3/uL (4.3-11.0)
[2018-10-24 08:32] LABS: ALBUMIN 2.3 GM/DL (3.2-4.5); BILIRUBIN,TOTAL 1.1 MG/DL (0.1-1.0); CALCIUM 7.5 MG/DL (8.5-10.1); CREATININE SERUM 1.7 MG/DL (0.60-1.30); POTASSIUM 3.2 MMOL/L (3.6-5.0); TOTAL PROTEIN 4.3 GM/DL (6.4-8.2)
[2018-10-24 08:40] LABS: ABG BASE EXCESS -9.8 MMOL/L (-2.5-2.5); ABG OXYGEN SATURATION 97 % (94-100); ABG PCO2 27 MMHG (35-45); ABG PH 7.35 (7.37-7.43); ABG PO2 82 MMHG (79-93); ABG TCO2 15.7 MMOL/L (21.0-31.0)
[2018-10-24 08:43] LABS: ALLENS TEST YES-POS; INSPIRED O2 RA; PATIENT TEMP 96.9; VENTILATOR NO
--- NOTE | 2018-10-24 08:57 | NUR ---
ATTEMPTED TO REACH DR ELLIS BY PHONE ABOUT CRITICAL LABS.
--- NOTE | 2018-10-24 09:00 | Diagnostic Imaging Report ---
INDICATION: Sepsis. TIME OF EXAM: 8:44 AM Correlation is made with prior study 10/23/2018. FINDINGS: The lungs are hyperinflated consistent with COPD. Biapical pleural parenchymal scarring is noted. No infiltrates are detected. No significant effusion or pneumothorax is seen. IMPRESSION: Stable chronic changes since exam one day earlier. Dictated by: Dictated on workstation # [id number]
--- NOTE | 2018-10-24 09:18 | NUR ---
REACHED DR ELLIS OFFICE NURSE AND LEFT MESSAGE ABOUT CRITICAL LAB VALUES
[2018-10-24] MEDS: amLODIPine 2.5MG (NORVASC) TAB PO SCH (09:32)
[2018-10-24] MEDS: ASPIRIN E.C. 81 MG (ECOTRIN) TAB PO SCH (09:32)
[2018-10-24] MEDS: PANTOPRAZOLE 40 MG (PROTONIX) VIAL IV SCH (09:32)
--- NOTE | 2018-10-24 10:24 | Pulmonary Consultation ---
History of Present Illness History of Present Illness Date of Consultation 10/24/18 10:19 Time Seen by Provider: 10:19 Date of Admission Reason for Visit: Chest pain History of Present Illness 87yo with hx of paroxysmal Afib presented to ED secondary to SOB, left sided CP, fever and chills. She was found to have PNA with sepsis and hypoxia in the ED and was admitted to 4th floor with Abx therapy. No prior episode like this. Dr. Mcconnell has consulted me for pulmonary management. Allergies and Home Medications Allergies Coded Allergies: JULIO CÉSARANo Known Allergies (Verified Allergy, Unknown, 09/08/05) Home Medications Alprazolam 0.25 Mg Tablet, 0.5 TAB PO DAILY PRN for ANXIETY, (Reported) Amlodipine Besylate 2.5 Mg Tablet, 2.5 MG PO DAILY, (Reported) Aspirin 81 Mg Tablet.dr, 81 MG PO DAILY, (Reported) Cholecalciferol (Vitamin D3) 2,000 Unit Tablet, 2,000 UNIT PO DAILY, (Reported) Lisinopril 20 Mg Tablet, 20 MG PO HS, (Reported) Metoprolol Succinate 25 Mg Tab.er.24h, 25 MG PO DAILY, (Reported) Potassium Chloride 10 Meq Capsule.er, 10 MEQ PO Q48H, (Reported) Past Rekgjue-Tjjiur-Pfqutr Hx Past Med/Social Hx: Reviewed and Corrections made Patient Social History Alcohol Use: Denies Use Recreational Drug Use: No 2nd Hand Smoke Exposure: No Recent Foreign Travel: No Contact w/Someone Who Travel: No Recent Infectious Disease Expo: No Physical Abuse: No Sexual Abuse: No Mistreated: No Fear: No Past Medical History Surgeries: No Respiratory: No Cardiac: Yes Atrial Fibrillation, Hypertension Neurological: No : No Reproductive Disorders: No Genitourinary: No Gastrointestinal: No Musculoskeletal: No Endocrine: No HEENT: No Cancer: No Psychosocial: No Review of Systems Time Seen by Provider: 12:37 Constitutional: Weakness, Malaise; No: Fever, Chills, Sweats, Other Eyes: No: Pain, Vision change, Conjunctivae inflammation, Eyelid inflammation, Other, Redness ENT: Nose congestion; No: Ear pain, Ear discharge, Nose pain, Nose discharge, Mouth pain, Mouth swelling, Throat pain, Throat swelling, Other Respiratory: Cough, Dry, Shortness of breath, SOB with excertion, Wheezing; No: Hemoptysis, Pleuritic Pain, Sputum, Wheezing, Other Cardiovascular: Palpitations, Paroxysmal Noc. Dyspnea, Lt Headedness Sepsis Event Evaluation Height, Weight, BMI Height: 5'0.00" Weight: 116lbs. 4.0oz. 52.134450ok; 22.7 BMI Method:Stated Exam Exam Vital Signs Date Time Temp Pulse Resp B/P (MAP) Pulse Ox O2 Delivery O2 Flow Rate FiO2 10/24/18 09:50 95 10/24/18 08:00 96 Room Air 10/24/18 07:31 98.9 94 20 123/58 (79) 96 Room Air 10/24/18 06:13 94 10/24/18 04:40 98.4 77 20 113/54 (73) 96 Room Air 10/24/18 01:38 92 10/24/18 00:59 97.7 81 20 111/58 (75) 96 Room Air 10/23/18 21:40 93 10/23/18 20:00 99.0 80 20 118/56 (76) 95 Room Air 10/23/18 20:00 Room Air 10/23/18 16:00 100.1 74 20 111/66 (81) 95 Room Air 10/23/18 14:19 96 Nasal Cannula 2.00 10/23/18 12:00 98.8 78 20 115/68 (84) 97 Nasal Cannula 2.00 I & O 10/24/18 07:00 Intake Total 2300 ml Output Total 200 ml Balance 2100 ml Height & Weight Height: 5'0.00" Weight: 116lbs. 4.0oz. 52.772908is; 22.7 BMI Method:Stated General Appearance: WD/WN, Moderate Distress HEENT: PERRL/EOMI, Normal ENT Inspection, Pharynx Normal Neck: Normal Inspection Respiratory: Decreased Breath Sounds, Wheezing (subtle), Other (tachypnea) Cardiovascular: No Edema, No Murmur Capillary Refill: Less Than 3 Seconds Extremity: Normal Inspection, Non Tender, No Pedal Edema Neurologic/Psychiatric: Alert, Oriented x3, No Motor/Sensory Deficits, Normal Mood/Affect, vp patient II-XII Norm as Tested Skin: Normal Color, Warm/Dry Lymphatic: No Adenopathy Results Lab Laboratory Tests 10/23/18 04:10 10/24/18 05:15 8/15/19 08:05 Assessment/Plan Assessment/Plan Severe sepsis with bacteremia with GNR secondary -Check Abdominal US -Currently on Zosyn, Vanco, and doxy -Check MRSA nasal swab -Give 30cc/kg of IVF however monitor close for pulmonary edema Acute renal failure -IVF -Monitor -Hold NSAIDs and ACEI for now elevated bili and AST -Check Abd US Metabolic lactic acidosis -IVF -Monitor Hkypokalemia -replace -check mg and phos Thrombocytopenia -Check DIC panel -Check HIT Abx ELIDA BLUM DO Oct 24, 2018 10:24
[2018-10-24] MEDS ORDERED: VANCOMYCIN INJECTION 0.1 MG in NS (IVPB) 250 ML IV SCH (10:30)
[2018-10-24] MEDS ORDERED: LACTATED RINGERS 1,000 ML IV ONE ×2 (10:30)
[2018-10-24] MEDS: DOXYCYCLINE 100 MG (VIBRAMYCIN) TABLET PO SCH ×2 (10:44→16:55)
--- NOTE | 2018-10-24 10:51 | NUR ---
DR ELLIS NOTIFIED OF LACTIC ACID 3.16
[2018-10-24] MEDS ORDERED: VANCOMYCIN 1 GM/NS 250 ML IVPB IV NR ×2 (11:00)
[2018-10-24 11:08] LABS: FIBRIN DEGRADATION PRODUCTS 19.34 UG/ML (0.00-0.49); INR 1.9 (0.8-1.4); PROTHROMBIN TIME PATIENT 22.3 SEC (12.2-14.7)
[2018-10-24 11:10] LABS: MAGNESIUM 1.3 MG/DL (1.6-2.4); PHOSPHORUS 2.5 MG/DL (2.3-4.7)
--- NOTE | 2018-10-24 11:41 | NUR ---
provided prayer and Communion.
[2018-10-24 11:46] VITALS: BP 128/60
[2018-10-24] MEDS: POTASSIUM CL 10MEQ/50ML IVPB 50 ML IV SCH ×4 (12:15→15:51)
[2018-10-24] MEDS: LACTATED RINGERS 1,000 ML IV SCH ×2 (12:15→18:57)
--- NOTE | 2018-10-24 12:18 | Diagnostic Imaging Report ---
PROCEDURE: US abdomen complete. TECHNIQUE: Multiple real-time grayscale images were obtained over the abdomen in various projections. INDICATION: Sepsis and elevated liver function tests. FINDINGS: Liver is normal in size at 12.4 cm. No discrete liver mass is identified. Gallbladder is without stones or sludge. No wall thickening or biliary ductal dilatation is seen. Visualized pancreas is unremarkable. Spleen is normal size at 9.6 cm. Aorta appears nonaneurysmal. IVC is patent. Right kidney contain small cysts, largest 9 mm in size. No calculi or hydronephrosis is seen. There is no ascites. Note is made of right pleural effusion. IMPRESSION: 1. No evidence of cholelithiasis or acute cholecystitis. 2. Small right renal cyst. 3. Right pleural effusion. Dictated by: Dictated on workstation # [id number]
--- NOTE | 2018-10-24 13:00 | Cardiology Progress Note ---
Subjective Date Seen by Provider: Oct 24, 2018 Time Seen by Provider: 08:00 Subjective/Events-last exam patient is sitting in bed, seen in this morning, feeling well although she has findings suggestive of severe sepsis Review of Systems General: No Chills, No Night Sweats; Fatigue, Malaise; No Appetite, No Other HEENT: No Head Aches, No Visual Changes, No Eye Pain, No Ear Pain, No Dysphasia, No Sinus Congestion, No Post Nasal Drip, No Sore Throat, No Other Pulmonary: No Dyspnea, No Cough, No Pleuritic Chest Pain, No Other Cardiovascular: No: Chest Pain, Palpitations, Orthopnea, Paroxysmal Noc. Dyspnea, Edema, Lt Headedness, Other Focused Exam Lactate Level 10/23/18 06:11: Lactic Acid Level 3.58*H 10/24/18 08:05: Lactic Acid Level 3.70*H 10/24/18 10:20: Lactic Acid Level 3.16*H Lactic Acid Level Laboratory Tests Test 10/24/18 10:20 Lactic Acid Level 3.16 MMOL/L (0.50-2.00) *H Objective-Cardiology Exam Last Set of Vital Signs Vital Signs 10/23/18 10/23/18 10/24/18 08:29 14:19 11:46 Temp 98.8 Pulse 79 Resp 20 B/P (MAP) 128/60 (82) Pulse Ox 96 O2 Delivery Room Air O2 Flow Rate 2.00 FiO2 32 Capillary Refill : Less Than 3 Seconds I&O Intake and Output 10/24/18 00:00 Intake Total 2910 ml Output Total 200 ml Balance 2710 ml Intake Oral 910 ml IV Total 2000 ml Output Urine Total 200 ml # Voids 3 # Bowel Movements 2 Daily Weight Change No No General: Alert, Oriented X3, Cooperative HEENT: Atraumatic, PERRLA Neck: Supple, No JVD, No Thyromegaly Lungs: Clear to Auscultation, Normal Air Movement Heart: Regular Rate, Normal S1, Normal S2, No Murmurs Abdomen: Normal Bowel Sounds, Soft, No Tenderness, No Hepatosplenomegaly, No Masses Extremities: No Clubbing, No Cyanosis, No Edema, Normal Pulses, No Tenderness/Swelling Skin: No Rashes, No Breakdown, No Significant Lesion Neuro: Normal Gait, Normal Speech, Strength at 5/5 X4 Ext, Normal Tone, Sensation Intact Psych/Mental Status: Mental Status NL, Mood NL Results Lab Laboratory Tests 10/24/18 05:15 10/24/18 08:05 A/P-Cardiology Admission Diagnosis Fever Elevated troponin level Hypertension Paroxysmal atrial fibrillation Assessment/Plan severe sepsis, gram-negative rods, unknown source, Dr. Beckman consulted, being covered with Zosyn. Continue to manage Non-ST elevation myocardial infarction, probably type II OH secondary to sepsis, underlying coronary artery disease cannot be ruled out entirely. Continue to monitor troponin at this time Acute renal insufficiency, secondary to sepsis. Continue to monitor Metabolic acidosis secondary to sepsis, receiving antibiotic and IV fluid. Continue to monitor Personal history of paroxysmal atrial fibrillation reported episode of atrial fibrillation about 2 years ago that improved after taking metoprolol, reporting improvement no further episode of palpitation, has been following with a rental counter clerk in [place], not on anticoagulation. Hypertension, maintained on Norvasc, lisinopril and metoprolol, restart home medication and continue to monitor Recent toe infection, had good dorsalis pedis pulse, no signs of infection at this time. Clinical Quality Measures DVT/VTE Risk/Contraindication: Risk Factor Score Per Nursin RFS Level Per Nursing on Admit: 4+=Very High DAVID GRAYSON MD Oct 24, 2018 13:00
--- NOTE | 2018-10-24 14:12 | NUR ---
Master Hearth Technician follow up. Friends present to take the pt's to Holy Day observances at the [place]. Engaged with the pt and her , offering compassionate presence and ongoing emotional support. The pt said her sister, Clari, is home ill today and she is concerned for her.
[2018-10-24] MEDS ORDERED: MAGNESIUM 1 GM/100 ML IVPB 100 ML IV NR (14:30)
[2018-10-24 15:31] VITALS: BP 129/58
--- NOTE | 2018-10-24 18:43 | Progress Note ---
Subjective Date Seen by a Provider: Oct 24, 2018 Time Seen by a Provider: 12:45 Subjective/Events-last exam Fwup sepsis, elevated troponin, Hx. of PAF, Hypertension. Patient feeling much better and appetite much improved. Focused Exam Lactate Level 10/23/18 06:11: Lactic Acid Level 3.58*H 10/24/18 08:05: Lactic Acid Level 3.70*H 10/24/18 10:20: Lactic Acid Level 3.16*H Objective Exam Vital Signs Date Time Temp Pulse Resp B/P (MAP) Pulse Ox O2 Delivery O2 Flow Rate FiO2 10/24/18 15:33 92 Room Air 10/24/18 15:31 98.6 78 20 129/58 (81) 96 Room Air 10/24/18 11:46 98.8 79 20 128/60 (82) 96 Room Air 10/24/18 09:50 95 10/24/18 08:00 96 Room Air 10/24/18 07:31 98.9 94 20 123/58 (79) 96 Room Air 10/24/18 06:13 94 10/24/18 04:40 98.4 77 20 113/54 (73) 96 Room Air 10/24/18 01:38 92 10/24/18 00:59 97.7 81 20 111/58 (75) 96 Room Air 10/23/18 21:40 93 10/23/18 20:00 99.0 80 20 118/56 (76) 95 Room Air 10/23/18 20:00 Room Air I & O 10/24/18 07:00 Intake Total 2300 ml Output Total 200 ml Balance 2100 ml Capillary Refill : Less Than 3 Seconds General Appearance: No Apparent Distress Neck: Supple Respiratory: Lungs Clear Cardiovascular: Regular Rate, Rhythm, Gallop/S4 Gastrointestinal: normal bowel sounds, non tender, soft Extremity: Non Tender, No Calf Tenderness, No Pedal Edema Neurologic/Psychiatric: Alert, Oriented x3 Skin: Warm/Dry Results Lab Laboratory Tests 10/24/18 05:15: White Blood Count 22.3H, Red Blood Count 3.86L, Hemoglobin 11.1#L, Hematocrit 34L, Mean Corpuscular Volume 88, Mean Corpuscular Hemoglobin 29, Mean Corpuscular Hemoglobin Concent 33, Red Cell Distribution Width 15.2H, Platelet Count 81L, Mean Platelet Volume 12.4H, Neutrophils (%) (Auto) 91H, Lymphocytes (%) (Auto) 4L, Monocytes (%) (Auto) 5, Eosinophils (%) (Auto) 0, Basophils (%) (Auto) 0, Neutrophils # (Auto) 20.4H, Lymphocytes # (Auto) 0.9L, Monocytes # (Auto) 1.1H, Eosinophils # (Auto) 0.0, Basophils # (Auto) 0.0, Neutrophils % (Manual) 80, Lymphocytes % (Manual) 2, Monocytes % (Manual) 1, Eosinophils % (Manual) 0, Basophils % (Manual) 0, Band Neutrophils 17, Toxic Granulation 1+, Poikilocytosis SLIGHT, Anisocytosis SLIGHT, Elliptocytes SLIGHT, Sodium Level 143, Potassium Level 3.4L, Chloride Level 116H, Carbon Dioxide Level 15L, Anion Gap 12, Blood Urea Nitrogen 22H, Creatinine 1.61H, Estimat Glomerular Filtration Rate 30, BUN/Creatinine Ratio 14, Glucose Level 60*L, Calcium Level 7.5L, Corrected Calcium 8.9, Total Bilirubin 1.1H, Aspartate Amino Transf (AST/SGOT) 49H, Alanine Aminotransferase (ALT/SGPT) 26, Alkaline Phosphatase 46, Troponin I 1.108*H, Total Protein 4.2L, Albumin 2.3L 10/24/18 07:02: Glucometer 75 10/24/18 08:05: White Blood Count 22.4H, Red Blood Count 3.77L, Hemoglobin 10.9L, Hematocrit 33L , Mean Corpuscular Volume 89, Mean Corpuscular Hemoglobin 29, Mean Corpuscular Hemoglobin Concent 33, Red Cell Distribution Width 15.5H, Platelet Count 80L, Mean Platelet Volume 12.4H, Sodium Level 142, Potassium Level 3.2L, Chloride Level 115H, Carbon Dioxide Level 15L, Anion Gap 12, Blood Urea Nitrogen 23H, Creatinine 1.70H, Estimat Glomerular Filtration Rate 28, BUN/Creatinine Ratio 14, Glucose Level 96, Calcium Level 7.5L, Corrected Calcium 8.9, Total Bilirubin 1.1H, Aspartate Amino Transf (AST/SGOT) 47H, Alanine Aminotransferase (ALT/SGPT) 27, Alkaline Phosphatase 40, Total Protein 4.3L, Albumin 2.3L, Lactic Acid Level 3.70*H 10/24/18 08:10: Prothrombin Time 22.3H, INR Comment 1.9H, Activated Partial Thromboplast Time 55H, Fibrinogen 282, D-Dimer 19.34H 10/24/18 08:15: Phosphorus Level 2.5, Magnesium Level 1.3L 10/24/18 08:22: Blood Gas Puncture Site RR, Blood Gas Patient Temperature 96.9, Arterial Blood pH 7.35L, Arterial Blood Partial Pressure CO2 27L, Arterial Blood Partial Pressure O2 82, Arterial Blood HCO3 15*L, Arterial Blood Total CO2 15.7L, Arterial Blood Oxygen Saturation 97, Arterial Blood Base Excess -9.8L, Sven Test YES-POS, Blood Gas Ventilator Setting NO, Blood Gas Inspired Oxygen RA 10/24/18 10:20: Lactic Acid Level 3.16*H Microbiology 10/23/18 Blood Culture - Preliminary, Resulted Gram Negative [place] 10/23/18 Urine Culture - Preliminary, Resulted Gram Negative Bacillus 1 Assessment/Plan Assessment/Plan Assess & Plan/Chief Complaint 1. Sepsis--on zosyn, added Vancomycin and doxycycline until cultures and tick panel finals 2. Hypokalemia and Hypomagnesemia--replace via IV 3. Elevated Troponin I and Hx of Paroxysmal Atrial Fibrillation--Cardiology to assess ECHO--no further CP and is in NSR 4. Hypertension--BP stable with BP meds on hold 5. Hypoxia--stable on oxygen Clinical Quality Measures Admission Status Admission Dx 1. Febrile Illness with Neutropenia/SIRS--admit, cover with zosyn, pancultures, monitor lactic acid 2. Hypertension--BP currently stable so will monitor BP and restart home meds if needed 3. Chest Pain with Elevated Troponin--only one episode of CP so will repeat cardiac enzymes, check 2-D ECHO and consult cardiology 4. Hypoxia--on oxygen 5. History of Paroxysmal Atrial Fibrillation--in NSR and reports only 1 episode about 2 years ago DVT/VTE Risk/Contraindication: Risk Factor Score Per Nursin RFS Level Per Nursing on Admit: 4+=Very High CARRIE ELLIS DO Oct 24, 2018 18:43
[2018-10-24 19:38] VITALS: BP 142/74
[2018-10-25 00:05] VITALS: BP 148/73
[2018-10-25] MEDS: LACTATED RINGERS 1,000 ML IV SCH ×3 (01:37→13:43)
[2018-10-25] MEDS: RT-ALBUTEROL/IPRATROPIUM 3 ML (DUONEB) VIAL INH SCH ×6 (02:17→21:37)
[2018-10-25 03:40] VITALS: BP 128/73
[2018-10-25] MEDS: PIPERACILLIN/TAZO 4.5 GM/NS 100 ML IV SCH ×4 (06:02→17:16)
[2018-10-25] MEDS: DOXYCYCLINE 100 MG (VIBRAMYCIN) TABLET PO SCH ×2 (06:02→17:15)
[2018-10-25 06:05] LABS: BASOPHILS % (AUTO) 0 % (0-10); EOSINOPHILS # (AUTO) 0.2 10^3/uL (0.0-0.3); EOSINOPHILS % (AUTO) 1 % (0-10); HEMATOCRIT 31 % (35-52); HEMOGLOBIN 10.1 G/DL (11.5-16.0); LYMPHOCYTES # (AUTO) 1.1 X 10^3 (1.0-4.0); LYMPHOCYTES % (AUTO) 7 % (12-44); MEAN CORPUSCULAR HEMOGLOBIN 29 PG (25-34); MEAN CORPUSCULAR HGB CONC 33 G/DL (32-36); MEAN CORPUSCULAR VOLUME 87 FL (80-99); MEAN PLATELET VOLUME 12.2 FL (7.4-10.4); MONOCYTES # (AUTO) 0.9 X 10^3 (0.0-1.0); MONOCYTES % (AUTO) 6 % (0-12); NEUTROPHILS # (AUTO) 12.9 X 10^3 (1.8-7.8); NEUTROPHILS % (AUTO) 86 % (42-75); PLATELET COUNT 67 10^3/uL (130-400); RED CELL DISTRIBUTION WIDTH 15.3 % (10.0-14.5); WHITE BLOOD COUNT 15.1 10^3/uL (4.3-11.0)
[2018-10-25] MEDS: ONDANSETRON 4 MG/2 ML (SDV) Z0FRAN IV PRN (06:41)
[2018-10-25 06:46] LABS: ALBUMIN 2.1 GM/DL (3.2-4.5); BILIRUBIN,TOTAL 0.8 MG/DL (0.1-1.0); CALCIUM 7.8 MG/DL (8.5-10.1); CREATININE SERUM 1.53 MG/DL (0.60-1.30); MAGNESIUM 1.2 MG/DL (1.6-2.4); POTASSIUM 3.4 MMOL/L (3.6-5.0); TOTAL PROTEIN 3.8 GM/DL (6.4-8.2)
[2018-10-25 08:00] VITALS: BP 145/76
[2018-10-25] MEDS: amLODIPine 2.5MG (NORVASC) TAB PO SCH (08:18)
[2018-10-25] MEDS: ASPIRIN E.C. 81 MG (ECOTRIN) TAB PO SCH (08:18)
[2018-10-25] MEDS: PANTOPRAZOLE 40 MG (PROTONIX) VIAL IV SCH (08:20)
--- NOTE | 2018-10-25 09:00 | Cardiology Progress Note ---
Subjective Date Seen by Provider: Oct 25, 2018 Time Seen by Provider: 08:55 Subjective/Events-last exam Patient is laying down in bed, feeling better, vomited early in the morning. No chest pain or shortness of breath Review of Systems General: No Chills, No Night Sweats, No Fatigue, No Malaise, No Appetite, No Other HEENT: No Head Aches, No Visual Changes, No Eye Pain, No Ear Pain, No Dysphasia, No Sinus Congestion, No Post Nasal Drip, No Sore Throat, No Other Pulmonary: No Dyspnea, No Cough, No Pleuritic Chest Pain, No Other Cardiovascular: No: Chest Pain, Palpitations, Orthopnea, Paroxysmal Noc. Dyspnea, Edema, Lt Headedness, Other Focused Exam Lactate Level 10/23/18 06:11: Lactic Acid Level 3.58*H 10/24/18 08:05: Lactic Acid Level 3.70*H 10/24/18 10:20: Lactic Acid Level 3.16*H Objective-Cardiology Exam Last Set of Vital Signs Vital Signs 10/23/18 10/23/18 10/25/18 10/25/18 10/25/18 08:29 14:19 03:40 07:52 08:00 Temp 97.3 Pulse 84 Resp 18 B/P (MAP) 128/73 (91) Pulse Ox 93 O2 Delivery Room Air O2 Flow Rate 2.00 FiO2 32 Capillary Refill : Less Than 3 Seconds I&O Intake and Output 10/25/18 00:00 Intake Total 2595 ml Balance 2595 ml Intake Oral 1175 ml IV Total 1420 ml # Voids 10 # Bowel Movements 4 General: Alert, Oriented X3, Cooperative HEENT: Atraumatic, PERRLA Neck: Supple, No JVD, No Thyromegaly Lungs: Clear to Auscultation, Normal Air Movement Heart: Regular Rate, Normal S1, Normal S2, No Murmurs Abdomen: Normal Bowel Sounds, Soft, No Tenderness, No Hepatosplenomegaly, No Masses Extremities: No Clubbing, No Cyanosis, No Edema, Normal Pulses, No Tenderness/Swelling Skin: No Rashes, No Breakdown, No Significant Lesion Neuro: Normal Gait, Normal Speech, Strength at 5/5 X4 Ext, Normal Tone, Sensation Intact Psych/Mental Status: Mental Status NL, Mood NL Results Lab Laboratory Tests 10/25/18 04:55 10/25/18 05:00 A/P-Cardiology Admission Diagnosis Fever Elevated troponin level Hypertension Paroxysmal atrial fibrillation Assessment/Plan Severe sepsis, gram-negative rods, probably secondary to UTI, receiving Zosyn, Empiric Broad-spectrum antibiotics were added. Managed by primary care physician Non-ST elevation myocardial infarction, probably type II [place] secondary to sepsis, underlying coronary artery disease cannot be ruled out entirely. Continue to monitor troponin at this time, conservative management at this point Acute renal insufficiency, secondary to sepsis. Monitor renal function Electrolyte imbalance, hypokalemia, hypomagnesemia, I will give 2 g of magnesium IV and 2 mEq of potassium IV, monitor EKG, monitor electrolytes Metabolic acidosis, lactic acidosis secondary to sepsis, receiving antibiotic and IV fluid. Continue to monitor Personal history of paroxysmal atrial fibrillation reported episode of atrial fibrillation about 2 years ago that improved after taking metoprolol, reporting improvement no further episode of palpitation, has been following with a operations intelligence superintendent in [place], not on anticoagulation. Hypertension, maintained on Norvasc, lisinopril and metoprolol, restart home medication and continue to monitor Recent toe infection, had good dorsalis pedis pulse, no signs of infection at this time. Clinical Quality Measures DVT/VTE Risk/Contraindication: Risk Factor Score Per Nursin RFS Level Per Nursing on Admit: 4+=Very High DAVID GRAYSON MD Oct 25, 2018 09:00
[2018-10-25] MEDS ORDERED: MAGNESIUM OXIDE (MAG-OX)400 MG TAB ONE (09:08)
[2018-10-25] MEDS ORDERED: KCL 20 MEQ TAB (K-DUR) PO ONE (09:08)
[2018-10-25] MEDS: POTASSIUM CL 10MEQ/50ML IVPB 50 ML IV SCH ×2 (09:33→09:34)
[2018-10-25] MEDS: MAGNESIUM 1 GM/100 ML IVPB 100 ML IV SCH ×2 (09:33→11:41)
--- NOTE | 2018-10-25 10:54 | Pulmonary Progress Note ---
Subjective Time Seen by a Provider: 09:28 Subjective/Events-last exam PT appears to be doing better. Sepsis Event Evaluation Height, Weight, BMI Height: 5'0.00" Weight: 116lbs. 4.0oz. 52.709264dx; 22.7 BMI Method:Stated Focused Exam Lactate Level 10/23/18 06:11: Lactic Acid Level 3.58*H 10/24/18 08:05: Lactic Acid Level 3.70*H 10/24/18 10:20: Lactic Acid Level 3.16*H Exam Exam Vital Signs Date Time Temp Pulse Resp B/P (MAP) Pulse Ox O2 Delivery O2 Flow Rate FiO2 10/25/18 08:00 Room Air 10/25/18 07:52 93 Room Air 10/25/18 03:40 97.3 84 18 128/73 (91) 95 Room Air 10/25/18 02:17 91 Room Air 10/25/18 00:05 97.3 82 18 148/73 (98) 95 Room Air 10/24/18 22:48 91 Room Air 10/24/18 19:38 99.6 80 18 142/74 (96) 95 Room Air 10/24/18 15:33 92 Room Air 10/24/18 15:31 98.6 78 20 129/58 (81) 96 Room Air 10/24/18 11:46 98.8 79 20 128/60 (82) 96 Room Air I & O 10/25/18 07:00 Intake Total 1655 ml Balance 1655 ml Height & Weight Height: 5'0.00" Weight: 116lbs. 4.0oz. 52.050323bt; 22.7 BMI Method:Stated General Appearance: No Apparent Distress HEENT: PERRL/EOMI, Normal ENT Inspection, Pharynx Normal Neck: Supple Respiratory: Lungs Clear Cardiovascular: Regular Rate, Rhythm, Gallop/S4 Capillary Refill: Less Than 3 Seconds Gastrointestinal: normal bowel sounds, non tender, soft Extremity: Non Tender, No Calf Tenderness, No Pedal Edema Neurologic/Psychiatric: Alert, Oriented x3 Skin: Warm/Dry Lymphatic: No Adenopathy Results Lab Laboratory Tests 10/24/18 05:15 10/24/18 08:05 10/25/18 04:55 10/25/18 05:00 Assessment/Plan Assessment/Plan Severe sepsis with bacteremia with GNR secondary -Check Abdominal US -Zosyn -D/C IVF now -S/P 30cc/kg of IVF Acute renal failure -IVF -Monitor Hypophos -replace elevated bili and AST -Check Abd US Metabolic lactic acidosis -IVF -Monitor Hkypokalemia -replace -check mg and phos Thrombocytopenia -monitor ELIDA BLUM DO Oct 25, 2018 10:54
[2018-10-25] MEDS ORDERED: VANCOMYCIN 750 MG/NS 250 ML IVPB IV SCH ×2 (11:00)
[2018-10-25 11:03] LABS: ABSOLUTE RETIC # 29 10e9/L (24-90); RETICULOCYTE % 0.83 % (0.50-2.40)
--- NOTE | 2018-10-25 11:29 | NUR ---
provided prayer and Communion.
[2018-10-25 11:44] LABS: BAND NEUTROPHILS 11 %; BASOPHILS % (MANUAL) 0 %; EOSINOPHILS % (MANUAL) 1 %; LYMPHOCYTES % (MANUAL) 7 %; MONOCYTES % (MANUAL) 4 %; NEUTROPHILS % (MANUAL) 77 %; RBC MORPH NORMAL
[2018-10-25 12:00] VITALS: BP 136/73
--- NOTE | 2018-10-25 12:45 | NUR ---
- Dr. Helms notified, palative nurse notified, family present - body released to [facility] Addendum: 10/25/18 at 1342 by JANET RENE RN wrong patient - disregard
[2018-10-25 16:00] VITALS: BP 143/78
--- NOTE | 2018-10-25 18:07 | Progress Note ---
Subjective Date Seen by a Provider: Oct 25, 2018 Time Seen by a Provider: 10:40 Subjective/Events-last exam Fwup UTI with sepsis, nonSTEMI, Hx. of PAF, Hypertension, Hypokalemia, Hypomagnesemia. Feeling much better. Focused Exam Lactate Level 10/23/18 06:11: Lactic Acid Level 3.58*H 10/24/18 08:05: Lactic Acid Level 3.70*H 10/24/18 10:20: Lactic Acid Level 3.16*H Objective Exam Vital Signs Date Time Temp Pulse Resp B/P (MAP) Pulse Ox O2 Delivery O2 Flow Rate FiO2 10/25/18 16:00 98.6 76 16 143/78 (99) 95 Room Air 10/25/18 14:45 93 Room Air 10/25/18 12:00 98.4 75 18 136/73 (94) 95 Room Air 10/25/18 10:57 96 Room Air 10/25/18 08:00 Room Air 10/25/18 08:00 98.6 79 18 145/76 (99) 93 Room Air 10/25/18 07:52 93 Room Air 10/25/18 03:40 97.3 84 18 128/73 (91) 95 Room Air 10/25/18 02:17 91 Room Air 10/25/18 00:05 97.3 82 18 148/73 (98) 95 Room Air 10/24/18 22:48 91 Room Air 10/24/18 19:38 99.6 80 18 142/74 (96) 95 Room Air I & O 10/25/18 07:00 Intake Total 1655 ml Balance 1655 ml Capillary Refill : Less Than 3 Seconds General Appearance: No Apparent Distress Neck: Supple Respiratory: Lungs Clear Cardiovascular: Regular Rate, Rhythm Gastrointestinal: normal bowel sounds, non tender, soft Extremity: Non Tender, No Calf Tenderness, No Pedal Edema, Swelling (left arm) Neurologic/Psychiatric: Alert, Oriented x3 Skin: Warm/Dry Results Lab Laboratory Tests 10/25/18 04:55: White Blood Count 15.1H, Red Blood Count 3.49L, Hemoglobin 10.1L, Hematocrit 31L , Mean Corpuscular Volume 87, Mean Corpuscular Hemoglobin 29, Mean Corpuscular Hemoglobin Concent 33, Red Cell Distribution Width 15.3H, Platelet Count 67L, Mean Platelet Volume 12.2H, Neutrophils (%) (Auto) 86H, Lymphocytes (%) (Auto) 7L, Monocytes (%) (Auto) 6, Eosinophils (%) (Auto) 1, Basophils (%) (Auto) 0, Neutrophils # (Auto) 12.9H, Lymphocytes # (Auto) 1.1, Monocytes # (Auto) 0.9, Eosinophils # (Auto) 0.2, Basophils # (Auto) 0.0, Neutrophils % (Manual) 77, Lymphocytes % (Manual) 7, Monocytes % (Manual) 4, Eosinophils % (Manual) 1, Basophils % (Manual) 0, Band Neutrophils 11, Blood Morphology Comment NORMAL, Absolute Reticulocyte Count 29, Percent Reticulocyte Count 0.83 10/25/18 05:00: Sodium Level 142, Potassium Level 3.4L, Chloride Level 117H, Carbon Dioxide Level 15L, Anion Gap 10, Blood Urea Nitrogen 21H, Creatinine 1.53H, Estimat Glomerular Filtration Rate 32, BUN/Creatinine Ratio 14, Glucose Level 68L, Calcium Level 7.8L, Corrected Calcium 9.3, Phosphorus Level 2.0L, Magnesium Level 1.2L, Total Bilirubin 0.8, Aspartate Amino Transf (AST/SGOT) 39H, Alanine Aminotransferase (ALT/SGPT) 22, Alkaline Phosphatase 53, Total Protein 3.8L, Albumin 2.1L Microbiology 10/23/18 Blood Culture - Preliminary, Resulted Escherichia coli 10/24/18 MRSA Screen - Final, Complete MRSA not isolated 10/23/18 Urine Culture - Final, Complete Escherichia coli Assessment/Plan Assessment/Plan Assess & Plan/Chief Complaint 1. UTI with Sepsis--on zosyn, DC Vancomycin 2. Hypokalemia and Hypomagnesemia--replace via oral and IV 3. Non STEMI--medical management with further workup after sepsis treated as patient is not symptomatic 4. Hx of Paroxysmal Atrial Fibrillation--in NSR 5. Hypertension--BP stable with BP meds on hold 6. Hypoxia--stable off oxygen Clinical Quality Measures Admission Status Admission Dx 1. Febrile Illness with Neutropenia/SIRS--admit, cover with zosyn, pancultures, monitor lactic acid 2. Hypertension--BP currently stable so will monitor BP and restart home meds if needed 3. Chest Pain with Elevated Troponin--only one episode of CP so will repeat cardiac enzymes, check 2-D ECHO and consult cardiology 4. Hypoxia--on oxygen 5. History of Paroxysmal Atrial Fibrillation--in NSR and reports only 1 episode about 2 years ago DVT/VTE Risk/Contraindication: Risk Factor Score Per Nursin RFS Level Per Nursing on Admit: 4+=Very High CARRIE ELLIS DO Oct 25, 2018 18:07
[2018-10-25 19:12] VITALS: BP 144/73
[2018-10-26] VITALS (7 sets, daily range): BP systolic 150–171; BP diastolic 74–96
[2018-10-26] MEDS: RT-ALBUTEROL/IPRATROPIUM 3 ML (DUONEB) VIAL INH SCH ×6 (02:25→22:27)
[2018-10-26] MEDS: PIPERACILLIN/TAZO 4.5 GM/NS 100 ML IV SCH ×4 (05:11→17:27)
[2018-10-26 05:26] LABS: BASOPHILS % (AUTO) 0 % (0-10); EOSINOPHILS # (AUTO) 0.5 10^3/uL (0.0-0.3); EOSINOPHILS % (AUTO) 6 % (0-10); HEMATOCRIT 31 % (35-52); HEMOGLOBIN 10.3 G/DL (11.5-16.0); LYMPHOCYTES % (AUTO) 11 % (12-44); MEAN CORPUSCULAR HEMOGLOBIN 29 PG (25-34); MEAN CORPUSCULAR HGB CONC 33 G/DL (32-36); MEAN CORPUSCULAR VOLUME 86 FL (80-99); MEAN PLATELET VOLUME 11.6 FL (7.4-10.4); MONOCYTES # (AUTO) 0.5 X 10^3 (0.0-1.0); MONOCYTES % (AUTO) 5 % (0-12); NEUTROPHILS # (AUTO) 6.9 X 10^3 (1.8-7.8); NEUTROPHILS % (AUTO) 77 % (42-75); PLATELET COUNT 99 10^3/uL (130-400); RED CELL DISTRIBUTION WIDTH 15.6 % (10.0-14.5); WHITE BLOOD COUNT 8.9 10^3/uL (4.3-11.0)
[2018-10-26 05:46] LABS: ALBUMIN 2.3 GM/DL (3.2-4.5); BILIRUBIN,TOTAL 0.8 MG/DL (0.1-1.0); CALCIUM 8.2 MG/DL (8.5-10.1); CREATININE SERUM 1.42 MG/DL (0.60-1.30); MAGNESIUM 1.7 MG/DL (1.6-2.4); PHOSPHORUS 2.1 MG/DL (2.3-4.7); POTASSIUM 3.9 MMOL/L (3.6-5.0); TOTAL PROTEIN 4.2 GM/DL (6.4-8.2)
[2018-10-26] MEDS: DOXYCYCLINE 100 MG (VIBRAMYCIN) TABLET PO SCH ×2 (06:42→17:26)
--- NOTE | 2018-10-26 07:09 | NUR ---
patient was doing good on 1 L NC, she states it makes her feel better. NOC RT said that she thinks maybe she drops while sleeping due to a desat of 88% throughout the night and thats why she is currently on 1 L.
[2018-10-26] MEDS: ONDANSETRON 4 MG/2 ML (SDV) Z0FRAN IV PRN (07:21)
[2018-10-26] MEDS ORDERED: SODIUM PHOSPHATE INJ 30 MM in NS (IVPB) 250 ML IV ONE (09:30)
[2018-10-26] MEDS ORDERED: TROUGH ORDER-PHARMACY XX NR (10:00)
[2018-10-26] MEDS: MAGNESIUM OXIDE (MAG-OX)400 MG TAB PO SCH (10:17)
[2018-10-26] MEDS: amLODIPine 2.5MG (NORVASC) TAB PO SCH (10:17)
[2018-10-26] MEDS: PANTOPRAZOLE 40 MG (PROTONIX) VIAL IV SCH (10:17)
[2018-10-26] MEDS: ASPIRIN E.C. 81 MG (ECOTRIN) TAB PO SCH (10:18)
--- NOTE | 2018-10-26 11:28 | Progress Note - Hospitalist ---
Subjective HPI/CC On Admission Date Seen by Provider: Oct 26, 2018 Time Seen by Provider: 11:30 Subjective/Events-last exam Had dyspnea last night resolved with O2 to asking for O2 tonight so will have RT perform overnight study tonight Tolerating PO a bit better Zosyn and Doxy maintained Doxy causes nausea so will give with food Creat 1.42 BM+ Lisinopril held due to creatinine elevation NaPO4 supplement ordered Checked meds and labs and notes Review of Systems General: Fatigue Pulmonary: Dyspnea Neurological: Weakness Focused Exam Lactate Level 10/24/18 08:05: Lactic Acid Level 3.70*H 10/24/18 10:20: Lactic Acid Level 3.16*H Objective Exam Vital Signs Vital Signs Date Time Temp Pulse Resp B/P (MAP) Pulse Ox O2 Delivery O2 Flow Rate FiO2 10/26/18 10:39 95 Room Air 10/26/18 08:00 98.8 80 20 167/84 (111) 10/26/18 07:01 1.00 10/26/18 07:01 24 Capillary Refill : Less Than 3 Seconds General Appearance: No Apparent Distress, WD/WN, Chronically ill, Other (frail) Respiratory: Chest Non Tender, Lungs Clear, Normal Breath Sounds, No Accessory Muscle Use, No Respiratory Distress Cardiovascular: Regular Rate, Rhythm, No Edema, No Gallop, No JVD, No Murmur, Normal Peripheral Pulses Neurologic/Psychiatric: Alert, Oriented x3, No Motor/Sensory Deficits, Normal Mood/Affect, television 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 Assessment/Plan Assessment and Plan Assess & Plan/Chief Complaint Assessment: UTI with sepsis NSTEMI Hx. of PAF Hypertension Hypokalemia Hypomagnesemia Hypoxia night time Plan: IV abx Take Doxy with food to prevent nausea Pulse Ox overnight Diagnosis/Problems Diagnosis/Problems (1) UTI (urinary tract infection) Status: Acute Qualifiers: Urinary tract infection type: acute cystitis Hematuria presence: without hematuria Qualified Codes: N30.00 - Acute cystitis without hematuria (2) Hypophosphatemia Status: Acute (3) Renal insufficiency Status: Chronic (4) Febrile illness, acute Status: Acute (5) Hypoxia Status: Acute (6) Leukopenia Status: Acute Qualifiers: Leukopenia type: unspecified Qualified Codes: D72.819 - Decreased white blood cell count, unspecified (7) Bronchospasm Status: Acute (8) Severe sepsis Clinical Quality Measures DVT/VTE Risk/Contraindication: Risk Factor Score Per Nursin RFS Level Per Nursing on Admit: 4+=Very High SILVER MTZ DO Oct 26, 2018 11:27
--- NOTE | 2018-10-26 13:37 | Cardiology Progress Note ---
Cardiology SOAP Progress Note Subjective: No cardiac complaints. Objective: I&O/Vital Signs 10/26/18 10/26/18 10/26/18 10/26/18 02:25 04:25 07:01 07:01 Temp 98.8 Pulse 82 75 Resp 24 B/P (MAP) 150/83 (105) Pulse Ox 92 93 92 92 O2 Delivery Room Air Nasal Cannula Nasal Cannula O2 Flow Rate 1.00 1.00 FiO2 24 10/26/18 10/26/18 08:00 10:39 Temp 98.8 Pulse 80 Resp 20 B/P (MAP) 167/84 (111) Pulse Ox 94 95 O2 Delivery Room Air Room Air 10/26/18 00:00 Intake Total 970 ml Balance 970 ml Weight (Pounds): 116 Weight (Ounces): 4.0 Weight (Calculated Kilograms): 52.332506 Constitutional: No appears stated age; AAO x 3; No apparent distress, No PERRL, No well-developed, No well-nourished, No other Respiratory: No accessory muscle use, No respiratory distress, No chest tender, No chest expansion is symmetric; chest is bilaterally symmetric; No lungs clear to percussion; lungs clear to auscultation; No crackles; rhonchi; No rales, No stridor, No wheezing, No pleural rub, No other Cardiovascular: regular rate-rhythm; No irregularly irregular, No extra beats, No parasternal heave is noted, No JVD, No edema, No bradycardia, No tachycardia, No point of maximal impulse, No cardiac thrills are palpable, No S1 and S2, No gallop/S3, No gallop/S4, No diastolic murmur, No systolic murmur, No friction rub, No click, No other Gastrointestional: No tender, No soft, No round, No distended, No pulsatile mass, No organomegaly, No guarding, No rebound, No tenderness, No hernia, No mass, No audible bowel sounds, No abnormal bowel sounds, No abdominal bruits, No spleenomegaly, No other Extremities: No normal range of motion, No non-tender, No normal inspection, No pedal edema, No calf tenderness, No normal capillary refill, No pelvis stable, No calf tenderness, No inflammation, No pedal edema, No slow capillary refill, No swelling, No other, No abrasion, No clubbing, No cyanosis, No ecchymosis, No laceration, No no lower extremity edema bilateral, No significant edema, No tend erness, No wound Neurologic/Psychiatric: no motor/sensory deficits, alert, normal mood/affect, oriented x 3 Skin: No normal color, No warm/dry, No cyanosis, No cool, No diaphoresis, No damp, No ecchymosis, No jaundice, No mottled, No pallor, No rash, No tattoos/piercings, No ulcerations, No rash on exposed areas, No ulcerations on exposed areas, No other Results/Procedures: Labs Laboratory Tests 10/26/18 05:18: White Blood Count 8.9, Red Blood Count 3.59L, Hemoglobin 10.3L, Hematocrit 31L, Mean Corpuscular Volume 86, Mean Corpuscular Hemoglobin 29, Mean Corpuscular Hemoglobin Concent 33, Red Cell Distribution Width 15.6H, Platelet Count 99L, Mean Platelet Volume 11.6H, Neutrophils (%) (Auto) 77H, Lymphocytes (%) (Auto) 11L, Monocytes (%) (Auto) 5, Eosinophils (%) (Auto) 6, Basophils (%) (Auto) 0, Neutrophils # (Auto) 6.9, Lymphocytes # (Auto) 1.0, Monocytes # (Auto) 0.5, Eosinophils # (Auto) 0.5H, Basophils # (Auto) 0.0, Sodium Level 143, Potassium Level 3.9, Chloride Level 118H, Carbon Dioxide Level 17L, Anion Gap 8, Blood Urea Nitrogen 17, Creatinine 1.42H, Estimat Glomerular Filtration Rate 35, BUN/Creatinine Ratio 12, Glucose Level 70, Calcium Level 8.2L, Corrected Calcium 9.6, Phosphorus Level 2.1L, Magnesium Level 1.7, Total Bilirubin 0.8, Aspartate Amino Transf (AST/SGOT) 37H, Alanine Aminotransferase (ALT/SGPT) 24, Alkaline Phosphatase 73, Troponin I 0.211H, Total Protein 4.2L, Albumin 2.3L Microbiology 10/23/18 Blood Culture - Final, Complete Escherichia coli 10/24/18 MRSA Screen - Final, Complete MRSA not isolated 10/23/18 Urine Culture - Final, Complete Escherichia coli A/P: Assessment/Dx: Fever Elevated troponin level Hypertension Paroxysmal atrial fibrillation Plan: Severe sepsis, gram-negative rods, probably secondary to UTI, receiving Zosyn, Empiric Broad-spectrum antibiotics were added. Managed by primary care luis eduardo conklin Non-ST elevation myocardial infarction, probably type II [place] secondary to sepsis, underlying coronary artery disease cannot be ruled out entirely. Continue to monitor troponin at this time, conservative management at this point Acute renal insufficiency, secondary to sepsis. Monitor renal function Electrolyte imbalance, hypokalemia, hypomagnesemia, I will give 2 g of magnesium IV and 2 mEq of potassium IV, monitor EKG, monitor electrolytes Metabolic acidosis, lactic acidosis secondary to sepsis, receiving antibiotic and IV fluid. 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 Hypertension, maintained on Norvasc, lisinopril and metoprolol, restart home medication and continue to monitor Recent toe infection, had good dorsalis pedis pulse, no signs of infection at this time. Thank you for your consultation. Please call me if you have any questions. Mk Colon MD, FACP, FACC, FSCAI, FHRS, CCDS Interventional Cardiology Cardiac Electrophysiology Vascular Medicine and Endovascular Interventions Focused Exam Lactate Level 10/24/18 08:05: Lactic Acid Level 3.70*H 10/24/18 10:20: Lactic Acid Level 3.16*H Fanny COLON MD Oct 26, 2018 1:37 pm
--- NOTE | 2018-10-26 16:40 | NUR ---
received report from Jennifer LLAMAS
[2018-10-27] VITALS (7 sets, daily range): BP systolic 153–175; BP diastolic 60–90
[2018-10-27] MEDS: RT-ALBUTEROL/IPRATROPIUM 3 ML (DUONEB) VIAL INH SCH ×6 (01:57→22:08)
[2018-10-27] MEDS: PIPERACILLIN/TAZO 4.5 GM/NS 100 ML IV SCH ×4 (06:00→17:50)
[2018-10-27] MEDS: DOXYCYCLINE 100 MG (VIBRAMYCIN) TABLET PO SCH ×2 (06:00→17:50)
[2018-10-27 06:24] LABS: BASOPHILS % (AUTO) 1 % (0-10); EOSINOPHILS # (AUTO) 0.5 10^3/uL (0.0-0.3); EOSINOPHILS % (AUTO) 7 % (0-10); HEMATOCRIT 33 % (35-52); HEMOGLOBIN 10.9 G/DL (11.5-16.0); LYMPHOCYTES # (AUTO) 1.1 X 10^3 (1.0-4.0); LYMPHOCYTES % (AUTO) 15 % (12-44); MEAN CORPUSCULAR HEMOGLOBIN 29 PG (25-34); MEAN CORPUSCULAR HGB CONC 33 G/DL (32-36); MEAN CORPUSCULAR VOLUME 86 FL (80-99); MEAN PLATELET VOLUME 12.3 FL (7.4-10.4); MONOCYTES # (AUTO) 0.4 X 10^3 (0.0-1.0); MONOCYTES % (AUTO) 5 % (0-12); NEUTROPHILS # (AUTO) 5.2 X 10^3 (1.8-7.8); NEUTROPHILS % (AUTO) 72 % (42-75); PLATELET COUNT 108 10^3/uL (130-400); RED CELL DISTRIBUTION WIDTH 15.2 % (10.0-14.5); WHITE BLOOD COUNT 7.3 10^3/uL (4.3-11.0)
--- NOTE | 2018-10-27 06:38 | Pulmonary Progress Note ---
Subjective Time Seen by a Provider: 12:36 Subjective/Events-last exam c/o of SOB. Sepsis Event Evaluation Height, Weight, BMI Height: 5'0.00" Weight: 116lbs. 4.0oz. 52.922320kd; 22.7 BMI Method:Stated Focused Exam Lactate Level 10/24/18 08:05: Lactic Acid Level 3.70*H 10/24/18 10:20: Lactic Acid Level 3.16*H Exam Exam Vital Signs Date Time Temp Pulse Resp B/P (MAP) Pulse Ox O2 Delivery O2 Flow Rate FiO2 10/27/18 01:59 91 Room Air 10/27/18 00:59 96.7 82 20 160/80 (106) 91 Room Air 10/26/18 22:31 92 Room Air 10/26/18 20:57 99.0 73 20 156/78 (104) 94 Room Air 10/26/18 20:00 Room Air 10/26/18 18:42 96 Room Air 10/26/18 16:46 99.1 78 20 156/79 (104) 96 Room Air 10/26/18 15:25 94 Room Air 10/26/18 12:00 98.0 78 20 152/74 (100) 97 Room Air 10/26/18 10:39 95 Room Air 10/26/18 08:00 98.8 80 20 167/84 (111) 94 Room Air 10/26/18 07:01 92 Nasal Cannula 1.00 10/26/18 07:01 75 92 24 I & O 10/27/18 07:00 Intake Total 2260 ml Balance 2260 ml Height & Weight Height: 5'0.00" Weight: 116lbs. 4.0oz. 52.476592hg; 22.7 BMI Method:Stated General Appearance: No Apparent Distress, WD/WN, Chronically ill, Other (frail) HEENT: PERRL/EOMI, Normal ENT Inspection, Pharynx Normal Neck: Supple Respiratory: Chest Non Tender, Lungs Clear, Normal Breath Sounds, No Accessory Muscle Use, No Respiratory Distress Cardiovascular: Regular Rate, Rhythm, No Edema, No Gallop, No JVD, No Murmur, Normal Peripheral Pulses Capillary Refill: Less Than 3 Seconds Gastrointestinal: normal bowel sounds, non tender, soft Extremity: Non Tender, No Calf Tenderness, No Pedal Edema Neurologic/Psychiatric: Alert, Oriented x3, No Motor/Sensory Deficits, Normal Mood/Affect, hide cleaner II-XII Norm as Tested Skin: Normal Color, Warm/Dry Lymphatic: No Adenopathy Results Lab Laboratory Tests 10/26/18 05:18 10/27/18 06:00 Assessment/Plan Assessment/Plan Severe sepsis with bacteremia with GNR secondary -Check Abdominal US -Zosyn -D/C IVF now -S/P 30cc/kg of IVF Acute renal failure -IVF -Monitor Hypophos -replace elevated bili and AST -Check Abd US Metabolic lactic acidosis Hkypokalemia -replace -check mg and phos Thrombocytopenia -monitor ELIDA BLUM DO Oct 27, 2018 06:38
[2018-10-27 06:40] LABS: ALBUMIN 2.5 GM/DL (3.2-4.5); BILIRUBIN,TOTAL 1.1 MG/DL (0.1-1.0); CALCIUM 8.3 MG/DL (8.5-10.1); CREATININE SERUM 1.25 MG/DL (0.60-1.30); MAGNESIUM 1.8 MG/DL (1.6-2.4); PHOSPHORUS 2.9 MG/DL (2.3-4.7); POTASSIUM 3.8 MMOL/L (3.6-5.0); TOTAL PROTEIN 4.7 GM/DL (6.4-8.2)
[2018-10-27] MEDS: MAGNESIUM OXIDE (MAG-OX)400 MG TAB PO SCH (08:42)
[2018-10-27] MEDS: ASPIRIN E.C. 81 MG (ECOTRIN) TAB PO SCH (08:42)
[2018-10-27] MEDS: amLODIPine 2.5MG (NORVASC) TAB PO SCH (08:42)
[2018-10-27] MEDS: PANTOPRAZOLE 40 MG (PROTONIX) VIAL IV SCH (08:42)
--- NOTE | 2018-10-27 11:56 | Progress Note - Hospitalist ---
Subjective HPI/CC On Admission Date Seen by Provider: Oct 27, 2018 Time Seen by Provider: 11:30 Subjective/Events-last exam Patient doing much better but having difficulty at night Pulse oximetry measured overnight study revealed she did indeed need oxygen She lives in [place] and is not set to go back for a couple of weeks so will need [email or web address] to work with to arrange nighttime o xygen Creatinine improved at 1.25 White count remains normal Bowels are moving Melatonin 3 mg will be tried tonight since she is having difficulty sleeping Conferred with RN Reviewed meds and labs Review of Systems General: Fatigue Gastrointestinal: Nausea Objective Exam Vital Signs Vital Signs Date Time Temp Pulse Resp B/P (MAP) Pulse Ox O2 Delivery O2 Flow Rate FiO2 10/27/18 14:17 94 Room Air 10/27/18 12:00 98.4 72 16 153/83 (106) 10/27/18 06:54 0.00 10/26/18 07:01 24 Capillary Refill : Less Than 3 Seconds General Appearance: No Apparent Distress, WD/WN, Chronically ill, Thin, Other (frail) Cardiovascular: Regular Rate, Rhythm, No Edema, No Gallop, No JVD, No Murmur, Normal Peripheral Pulses Neurologic/Psychiatric: Alert, Oriented x3, No Motor/Sensory Deficits, Normal Mood/Affect Skin: Normal Color, Warm/Dry Results/Procedures Lab Laboratory Tests 10/27/18 06:00 Patient resulted labs reviewed. Assessment/Plan Assessment and Plan Assess & Plan/Chief Complaint Assessment: UTI with sepsis NSTEMI Hx. of PAF Hypertension Hypokalemia Hypomagnesemia Hypoxia night time Plan: IV abx Take Doxy with food to prevent nausea Pulse Ox overnight reviewed needs night O2 at night Diagnosis/Problems Diagnosis/Problems (1) UTI (urinary tract infection) Status: Acute Qualifiers: Urinary tract infection type: acute cystitis Hematuria presence: without hematuria Qualified Codes: N30.00 - Acute cystitis without hematuria (2) Hypophosphatemia Status: Acute (3) Renal insufficiency Status: Chronic (4) Febrile illness, acute Status: Acute (5) Hypoxia Status: Acute (6) Leukopenia Status: Acute Qualifiers: Leukopenia type: unspecified Qualified Codes: D72.819 - Decreased white blood cell count, unspecified (7) Bronchospasm Status: Acute (8) Severe sepsis Status: Resolved Resolution Date/Time: 10/27/18 @ 15:28 Clinical Quality Measures DVT/VTE Risk/Contraindication: Risk Factor Score Per Nursin RFS Level Per Nursing on Admit: 4+=Very High SILVER MTZ DO Oct 27, 2018 11:56
--- NOTE | 2018-10-27 12:38 | Cardiology Progress Note ---
Cardiology SOAP Progress Note Subjective: no cardiac complaints. However patient not feeling as well as yesterday. Objective: I&O/Vital Signs 10/27/18 10/27/18 10/27/18 10/27/18 01:59 04:00 06:54 08:00 Temp 98.0 Pulse 82 Resp 21 B/P (MAP) 158/60 (92) Pulse Ox 91 91 92 O2 Delivery Room Air Room Air Room Air Room Air O2 Flow Rate 0.00 10/27/18 10/27/18 10/27/18 08:00 11:17 12:00 Temp 98.5 98.4 Pulse 81 72 Resp 16 16 B/P (MAP) 170/82 (111) 153/83 (106) Pulse Ox 94 92 95 O2 Delivery Room Air Room Air Room Air 10/27/18 00:00 Intake Total 2260 ml Balance 2260 ml Weight (Pounds): 116 Weight (Ounces): 4.0 Weight (Calculated Kilograms): [id number] Constitutional: No appears stated age; AAO x 3; No apparent distress, No PERRL, No well-developed, No well-nourished, No other Respiratory: No accessory muscle use, No respiratory distress, No chest tender, No chest expansion is symmetric; chest is bilaterally symmetric; No lungs clear to percussion; lungs clear to auscultation; No crackles; rhonchi; No rales, No stridor, No wheezing, No pleural rub, No other Cardiovascular: regular rate-rhythm; No irregularly irregular, No extra beats, No parasternal heave is noted, No JVD, No edema, No bradycardia, No tachycardia, No point of maximal impulse, No cardiac thrills are palpable, No S1 and S2, No gallop/S3, No gallop/S4, No diastolic murmur, No systolic murmur, No friction rub, No click, No other Gastrointestional: No tender, No soft, No round, No distended, No pulsatile mass, No organomegaly, No guarding, No rebound, No tenderness, No hernia, No mass, No audible bowel sounds, No abnormal bowel sounds, No abdominal bruits, No spleenomegaly, No other Extremities: No normal range of motion, No non-tender, No normal inspection, No pedal edema, No calf tenderness, No normal capillary refill, No pelvis stable, No calf tenderness, No inflammation, No pedal edema, No slow capillary refill, No swelling, No other, No abrasion, No clubbing, No cyanosis, No ecchymosis, No laceration, No no lower extremity edema bilateral, No significant edema, No tenderness, No wound Neurologic/Psychiatric: no motor/sensory deficits, alert, normal mood/affect, oriented x 3 Skin: No normal color, No warm/dry, No cyanosis, No cool, No diaphoresis, No damp, No ecchymosis, No jaundice, No mottled, No pallor, No rash, No tattoos/piercings, No ulcerations, No rash on exposed areas, No ulcerations on exposed areas, No other Results/Procedures: Labs Laboratory Tests 10/27/18 06:00: White Blood Count 7.3, Red Blood Count 3.78L, Hemoglobin 10.9L, Hematocrit 33L, Mean Corpuscular Volume 86, Mean Corpuscular Hemoglobin 29, Mean Corpuscular Hemoglobin Concent 33, Red Cell Distribution Width 15.2H, Platelet Count 108L, Mean Platelet Volume 12.3H, Neutrophils (%) (Auto) 72, Lymphocytes (%) (Auto) 15, Monocytes (%) (Auto) 5, Eosinophils (%) (Auto) 7, Basophils (%) (Auto) 1, Neutrophils # (Auto) 5.2, Lymphocytes # (Auto) 1.1, Monocytes # (Auto) 0.4, Eosinophils # (Auto) 0.5H, Basophils # (Auto) 0.0, Sodium Level 145, Potassium Level 3.8, Chloride Level 117H, Carbon Dioxide Level 18L, Anion Gap 10, Blood Urea Nitrogen 16, Creatinine 1.25, Estimat Glomerular Filtration Rate 40, BUN/Creatinine Ratio 13, Glucose Level 71, Calcium Level 8.3L, Corrected Calcium 9.5, Phosphorus Level 2.9, Magnesium Level 1.8, Total Bilirubin 1.1H, Aspartate Amino Transf (AST/SGOT) 27, Alanine Aminotransferase (ALT/SGPT) 20, Alkaline Phosphatase 88, Total Protein 4.7L, Albumin 2.5L Microbiology 10/23/18 Blood Culture - Final, Complete Escherichia coli 10/24/18 MRSA Screen - Final, Complete MRSA not isolated 10/23/18 Urine Culture - Final, Complete Escherichia coli A/P: Assessment/Dx: Fever Elevated troponin level Hypertension Paroxysmal atrial fibrillation Plan: Severe sepsis, gram-negative rods, probably secondary to UTI, receiving Zosyn, E mpiric Broad-spectrum antibiotics were added. Managed by primary care physician Non-ST elevation myocardial infarction, probably type II MD secondary to sepsis, underlying coronary artery disease cannot be ruled out entirely. Continue to monitor troponin at this time, conservative management at this point Acute renal insufficiency, secondary to sepsis. Monitor renal function Electrolyte imbalance, hypokalemia, hypomagnesemia, monitor EKG, monitor electrolytes Metabolic acidosis, lactic acidosis secondary to sepsis, receiving antibiotic and IV fluid. Continue to monitor Personal history of paroxysmal atrial fibrillation reported episode of atrial fibrillation about 2 years ago that improved after taking metoprolol, reporting improvement no further episode of palpitation, has been following with a drawer in in [place], not on anticoagulation. Hypertension, maintained on Norvasc, lisinopril and metoprolol, restart home medication and continue to monitor Recent toe infection, had good dorsalis pedis pulse, no signs of infection at this time. Thank you for your consultation. Please call me if you have any questions. Mk Cintron MD, FACP, FACC, FSCAI, FHRS, CCDS Interventional Cardiology Cardiac Electrophysiology Vascular Medicine and Endovascular Interventions Fanny CINTRON MD Oct 27, 2018 12:38
[2018-10-27] MEDS ORDERED: ALPRAZolam 0.25 MG (XANAX) TAB ONE (19:50)
[2018-10-27] MEDS: ALPRAZolam 0.25 MG (XANAX) TAB PO PRN (19:58)
--- NOTE | 2018-10-27 20:00 | NUR ---
PATIENT REPORTS INCREASED ANXIETY TONIGHT AND THAT AT HOME SHE HAS PRN XANAX 0.25 MG AND SHE TAKES HALF OF PILL AT HS. DR MTZ CONTACTED AND SHE ORDERED TO RESTART THIS PRN ORDER.
[2018-10-28] MEDS: RT-ALBUTEROL/IPRATROPIUM 3 ML (DUONEB) VIAL INH SCH ×6 (01:55→21:34)
[2018-10-28 04:00] VITALS: BP 150/90
[2018-10-28] MEDS: PIPERACILLIN/TAZO 4.5 GM/NS 100 ML IV SCH ×2 (05:16)
[2018-10-28 05:38] LABS: BASOPHILS # (AUTO) 0.1 10^3/uL (0.0-0.1); BASOPHILS % (AUTO) 1 % (0-10); EOSINOPHILS # (AUTO) 0.6 10^3/uL (0.0-0.3); EOSINOPHILS % (AUTO) 7 % (0-10); HEMATOCRIT 34 % (35-52); HEMOGLOBIN 11.1 G/DL (11.5-16.0); LYMPHOCYTES # (AUTO) 1.3 X 10^3 (1.0-4.0); LYMPHOCYTES % (AUTO) 15 % (12-44); MEAN CORPUSCULAR HEMOGLOBIN 29 PG (25-34); MEAN CORPUSCULAR HGB CONC 33 G/DL (32-36); MEAN CORPUSCULAR VOLUME 87 FL (80-99); MEAN PLATELET VOLUME 11.6 FL (7.4-10.4); MONOCYTES # (AUTO) 0.7 X 10^3 (0.0-1.0); MONOCYTES % (AUTO) 8 % (0-12); NEUTROPHILS # (AUTO) 5.9 X 10^3 (1.8-7.8); NEUTROPHILS % (AUTO) 70 % (42-75); PLATELET COUNT 127 10^3/uL (130-400); RED CELL DISTRIBUTION WIDTH 15.3 % (10.0-14.5); WHITE BLOOD COUNT 8.5 10^3/uL (4.3-11.0)
[2018-10-28 05:59] LABS: ALBUMIN 2.6 GM/DL (3.2-4.5); BILIRUBIN,TOTAL 1.2 MG/DL (0.1-1.0); CALCIUM 8.5 MG/DL (8.5-10.1); CREATININE SERUM 1.11 MG/DL (0.60-1.30); MAGNESIUM 1.4 MG/DL (1.6-2.4); POTASSIUM 3.8 MMOL/L (3.6-5.0); TOTAL PROTEIN 4.9 GM/DL (6.4-8.2)
[2018-10-28] MEDS: DOXYCYCLINE 100 MG (VIBRAMYCIN) TABLET PO SCH (06:28)
[2018-10-28 08:07] VITALS: BP 173/83
--- NOTE | 2018-10-28 08:39 | Cardiology Progress Note ---
Subjective Date Seen by Provider: Oct 28, 2018 Time Seen by Provider: 08:37 Subjective/Events-last exam Patient sitting up in bed, complaining of some orthopnea. Denies any chest pain. Objective-Cardiology Exam Last Set of Vital Signs Vital Signs 10/26/18 10/28/18 10/28/18 07:01 06:16 08:07 Temp 98.0 Pulse 89 Resp 18 B/P (MAP) 173/83 (113) Pulse Ox 94 O2 Delivery Room Air O2 Flow Rate 0.50 FiO2 24 Capillary Refill : Less Than 3 Seconds I&O Intake and Output 10/28/18 00:00 Intake Total 1370 ml Balance 1370 ml Intake Oral 1370 ml # Voids 6 # Bowel Movements 5 General: Alert, Oriented X3, Cooperative HEENT: Atraumatic, PERRLA Neck: Supple, No JVD, No Thyromegaly Lungs: Clear to Auscultation, Normal Air Movement Heart: Regular Rate, Normal S1, Normal S2, No Murmurs Abdomen: Normal Bowel Sounds, Soft, No Tenderness, No Hepatosplenomegaly, No Masses Extremities: No Clubbing, No Cyanosis, No Edema, Normal Pulses, No Tenderness/Swelling Skin: No Rashes, No Breakdown, No Significant Lesion Neuro: Normal Gait, Normal Speech, Strength at 5/5 X4 Ext, Normal Tone, Sensation Intact Psych/Mental Status: Mental Status NL, Mood NL Results Lab Laboratory Tests 10/28/18 05:19 A/P-Cardiology Admission Diagnosis Fever Elevated troponin level Hypertension Paroxysmal atrial fibrillation Assessment/Plan Severe sepsis, e. coli, secondary to UTI, continue on antibiotics. Managed by primary care physician Non-ST elevation myocardial infarction, probably type II PA secondary to sepsis, underlying coronary artery disease cannot be ruled out entirely. Continue to monitor troponin at this time, conservative management at this point Acute renal insufficiency, secondary to sepsis. improved. Electrolyte imbalance, hypokalemia, hypomagnesemia, I will give 2 g of magnesium IV and 2 mEq of potassium IV, monitor EKG, monitor electrolytes Metabolic acidosis, lactic acidosis secondary to sepsis, receiving antibiotic and IV fluid. 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 Hypertension, poorly controlled, restart home lisinopril and continue to monitor. Recent toe infection, had good dorsalis pedis pulse, no signs of infection at this time. Clinical Quality Measures DVT/VTE Risk/Contraindication: Risk Factor Score Per Nursin RFS Level Per Nursing on Admit: 4+=Very High FREDERIC NEVAREZ Oct 28, 2018 08:39
[2018-10-28] MEDS: amLODIPine 2.5MG (NORVASC) TAB PO SCH (08:55)
[2018-10-28] MEDS: PANTOPRAZOLE 40 MG (PROTONIX) VIAL IV SCH (08:55)
[2018-10-28] MEDS: ASPIRIN E.C. 81 MG (ECOTRIN) TAB PO SCH (08:55)
--- NOTE | 2018-10-28 08:58 | NUR ---
provided prayer and Communion.
[2018-10-28] MEDS: MAGNESIUM OXIDE (MAG-OX)400 MG TAB PO SCH ×2 (09:00→17:29)
--- NOTE | 2018-10-28 09:02 | Cardiology Progress Note ---
Subjective Date Seen by Provider: Oct 28, 2018 Time Seen by Provider: 09:00 Subjective/Events-last exam Patient is sitting in a chair, feeling better, complaining of orthopnea. No chest pain. No palpitation. Review of Systems General: No Chills, No Night Sweats, No Fatigue, No Malaise, No Appetite, No Other HEENT: No Head Aches, No Visual Changes, No Eye Pain, No Ear Pain, No Dysphasia, No Sinus Congestion, No Post Nasal Drip, No Sore Throat, No Other Pulmonary: Dyspnea; No Cough, No Pleuritic Chest Pain, No Other Cardiovascular: No: Chest Pain, Palpitations, Orthopnea, Paroxysmal Noc. Dyspnea, Edema, Lt Headedness, Other Objective-Cardiology Exam Last Set of Vital Signs Vital Signs 10/26/18 10/28/18 10/28/18 07:01 06:16 08:07 Temp 98.0 Pulse 89 Resp 18 B/P (MAP) 173/83 (113) Pulse Ox 94 O2 Delivery Room Air O2 Flow Rate 0.50 FiO2 24 Capillary Refill : Less Than 3 Seconds I&O Intake and Output 10/28/18 00:00 Intake Total 1370 ml Balance 1370 ml Intake Oral 1370 ml # Voids 6 # Bowel Movements 5 General: Alert, Oriented X3, Cooperative HEENT: Atraumatic, PERRLA Neck: Supple, No JVD, No Thyromegaly Lungs: Normal Air Movement, Other (Bilateral rhonchi) Heart: Regular Rate, Normal S1, Normal S2, No Murmurs Abdomen: Normal Bowel Sounds, Soft, No Tenderness, No Hepatosplenomegaly, No Masses Extremities: No Clubbing, No Cyanosis, No Edema, Normal Pulses, No Tenderness/S welling Skin: No Rashes, No Breakdown, No Significant Lesion Neuro: Normal Gait, Normal Speech, Strength at 5/5 X4 Ext, Normal Tone, Sensation Intact Psych/Mental Status: Mental Status NL, Mood NL Results Lab Laboratory Tests 10/28/18 05:19 A/P-Cardiology Admission Diagnosis Fever Elevated troponin level Hypertension Paroxysmal atrial fibrillation Assessment/Plan Status post sepsis, secondary to urosepsis with Escherichia coli. Receiving antibiotic and improving. Increasing orthopnea, bilateral rhonchi on exam, I will evaluate chest x-ray and BNP, give one dose of Lasix Hypomagnesemia, replace and monitor Non-ST elevation myocardial infarction, probably type II VT secondary to sepsis, underlying coronary artery disease cannot be ruled out entirely. continue with conservative management Status post acute renal insufficiency, better at this time Personal history of paroxysmal atrial fibrillation reported episode of atrial fibrillation about 2 years ago that improved after taking metoprolol, reporting improvement no further episode of palpitation, has been following with a clinical nurse occupational medicine in [place], not on anticoagulation. Hypertension, restart lisinopril and monitor Recent toe infection, had good dorsalis pedis pulse, no signs of infection at this time. Clinical Quality Measures DVT/VTE Risk/Contraindication: Risk Factor Score Per Nursin RFS Level Per Nursing on Admit: 4+=Very High DAVID GRAYSON MD Oct 28, 2018 09:02
[2018-10-28] MEDS ORDERED: lisINopril 5 MG (PRINIVIL) TABLET PO SCH (09:15)
[2018-10-28] MEDS ORDERED: FUROSEMIDE 40 MG/4 ML INJ (LASIX) IVP NR (09:27)
[2018-10-28] MEDS: MAGNESIUM 1 GM/100 ML IVPB 100 ML IV SCH ×2 (09:33→10:43)
--- NOTE | 2018-10-28 10:10 | Diagnostic Imaging Report ---
INDICATION: Cough and dyspnea. TECHNIQUE: PA and lateral views of the chest were obtained. COMPARISON: 10/24/2018. FINDINGS: There has been an increase in blunting of the costophrenic sulci bilaterally. There has also been a mild increase in the pulmonary venous congestion without significant cardiomegaly. No pneumothorax is identified. IMPRESSION: Pulmonary venous congestion with increasing bilateral pleural effusions. This could be on the basis of congestive heart failure and clinical correlation is recommended. Dictated by: Dictated on workstation # [id number]
[2018-10-28] MEDS: cefTRIAXone 1,000 MG/SWFI 10 ML IV PUSH IV SCH ×2 (11:22)
--- NOTE | 2018-10-28 11:41 | NUR ---
[employer] Cancellation Clerk follow up with pt and her , SYLVIA. The pt shared feeling grateful to be in the hospital receiving treatments for what could have been far worse. The pt's family and friends have brought the donuts and homemade candies for them to enjoy. The pt described multiple meaningful relationships developed over the years, from which they are receiving support and kindness. They shared that their chilango and trust in God continue to give them a sense of peace and comfort as they depend upon the Lord.
[2018-10-28 13:21] VITALS: BP 152/50
--- NOTE | 2018-10-28 14:42 | Pulmonary Progress Note ---
Subjective Time Seen by a Provider: 14:44 Subjective/Events-last exam Pt complains of orthopnea Sepsis Event Evaluation Height, Weight, BMI Height: 5'0.00" Weight: 116lbs. 4.0oz. 52.098255gs; 22.7 BMI Method:Stated Exam Exam Vital Signs Date Time Temp Pulse Resp B/P (MAP) Pulse Ox O2 Delivery O2 Flow Rate FiO2 10/28/18 13:21 97.9 72 20 152/50 (84) 96 Room Air 10/28/18 11:08 93 Room Air 10/28/18 08:07 98.0 89 18 173/83 (113) 94 Room Air 10/28/18 08:00 Room Air 10/28/18 06:16 93 Nasal Cannula 0.50 10/28/18 04:00 98.6 85 22 150/90 (110) 94 Nasal Cannula 2.00 10/28/18 01:55 97 Nasal Cannula 2.00 10/27/18 23:37 99.5 69 22 162/81 (108) 93 Room Air 10/27/18 22:08 92 Room Air 10/27/18 20:00 Room Air 10/27/18 19:26 99.5 77 20 175/85 (115) 98 Room Air 10/27/18 18:07 94 Room Air 10/27/18 17:00 99.1 82 20 174/90 (118) 95 Room Air I & O 10/28/18 07:00 Intake Total 1370 ml Balance 1370 ml Height & Weight Height: 5'0.00" Weight: 116lbs. 4.0oz. 52.990662yd; 22.7 BMI Method:Stated General Appearance: No Apparent Distress, WD/WN, Chronically ill, Thin, Other (frail) HEENT: PERRL/EOMI, Normal ENT Inspection, Pharynx Normal Neck: Supple Respiratory: Chest Non Tender, No Accessory Muscle Use, No Respiratory Distress, Crackles, Decreased Breath Sounds Cardiovascular: Regular Rate, Rhythm, No Edema, No Gallop, No JVD, No Murmur, Normal Peripheral Pulses Capillary Refill: Less Than 3 Seconds Gastrointestinal: normal bowel sounds, non tender, soft Extremity: Non Tender, No Calf Tenderness, No Pedal Edema Neurologic/Psychiatric: Alert, Oriented x3, No Motor/Sensory Deficits, Normal Mood/Affect Skin: Normal Color, Warm/Dry Lymphatic: No Adenopathy Results Lab Laboratory Tests 10/27/18 06:00 10/28/18 05:19 Assessment/Plan Assessment/Plan Severe sepsis with bacteremia with GNR secondary - much improved -Zosyn Pulmonary edema with bilateral pleural effusion secondary to IVF from sepsis -Agree with lasix Acute renal failure -IVF -Monitor Metabolic lactic acidosis Thrombocytopenia -monitor ELIDA BLUM DO Oct 28, 2018 14:42
--- NOTE | 2018-10-28 15:05 | Physical Therapy Evaluation ---
PT Evaluation-General Medical Diagnosis Admission Date Oct 23, 2018 at 07:11 Medical Diagnosis: febrile illness/hypoxia Onset Date: Oct 23, 2018 Therapy Diagnosis Therapy Diagnosis: debility Height/Weight Height (Feet): 5 Height (Inches): 0.00 Weight (Pounds): 116 Weight (Ounces): 4.0 Precautions Precautions/Isolations: Fall Prevention, Standard Precautions Referral Physician: Raheel Reason for Referral: Evaluation/Treatment Medical History Pertinent Medical History: Atrial Fib, HTN Current History ER with fever and chills Reviewed History: Yes Social History Home: Single Level Current Living Status: Spouse Entry Into Home: Stairs With Railing PT Steps Into Home: 3 Prior/Core FIM Prior Level of Function Therapy Code Descriptions/Definitions Functional [place] Measure: 0=Not Assessed/NA 4=Minimal Assistance 1=Total Assistance 5=Supervision or Setup 2=Maximal Assistance 6=Modified [place] 3=Moderate Assistance 7=Complete [place] Therapy Quality Codes: 6 Independent with activity with or without an assistive device 5 Patient requires set up or clean up by helper. Patient completes activity by themselves 4 Supervision or touching assist (CGA). [place] provide cues , steadying assist 3 The helper provides less than half the effort to complete the activity 2 The helper provides more than half the effort to complete the activity 1 Dependent. The helper does all the effort to complete an activity 7 Patient refused to complete or attempt activity 9 The patient did not perform the activity before the current illness or injury 88 Not attempted due to Medical conditions or safety concerns Functional Abilities and Goals: Independent: Patient completed the activities by him/herself, with or without an assistive device, with no assistance from a helper. Needed Some Help: Patient needed partial assistance from another person to complete activities. Dependent: A helper completed the activities for the patient. Unknown: Not Applicable: Bed Mobility: 7 Transfers (B,C,W/C) (FIM): 7 Gait: 7 Stairs: 7 Indoor Mobility (Ambulation): Independent Stairs: Independent Prior Devices Use: None has a cane and FWW at home PRN PT Evaluation-Current Subjective Patient agrees to PT. She reports she is feeling much better today. Pain Numeric Pain Scale: 0-No Pain Location: No Pain Reported Objective Patient Orientation: Normal For Age Problem Solving: Good ROM/Strength ROM Lower Extremities bilateral LE WFL Strength Lower Extremities 4/5 grossly bilateral LE Integumentary/Posture Integumentary refer to nursing notes Bowel Incontinence: No Bladder Incontinence: No Posture slightly kyphotic Neuromuscular (Tone, Coordination, Reflexes) grossly intact Sensory Vision: Wears Glasses Hearing: Impaired Sensation Right Lower Extremit: Intact Sensation Left Lower Extremity: Intact Transfers Therapy Code Descriptions/Definitions Functional [place] Measure: 0=Not Assessed/NA 4=Minimal Assistance 1=Total Assistance 5=Supervision or Setup 2=Maximal Assistance 6=Modified [place] 3=Moderate Assistance 7=Complete [place] Transfers (B, C, W/C) (FIM): 6 Scootin Rollin Supine to/from Sit: 6 Gait Mode of Locomotion: Walk Anticipated Mode of Locomotion: Walk Gait (FIM): 6 Distance (FIM): 3=150 ft Distance: 275' Gait Level of Assist: 6 Gait Assistive Device: FWW Comments/Gait Description safe and functional with no deviation Balance Sitting Static: Normal Sitting Dynamic: Normal Standing Static: Normal Standing Dynamic: Normal Assessment/Needs 87 y.o. female, will be seen short term to ensure safe and functional mobility. Patient is currently modified independent with gross motor skills. PT to see patient x 2 sessions. Rehab Potential: Fair PT Short Term Goals Short Term Goals Time Frame: Oct 29, 2018 Transfers (B,C,W/C) (FIM): 7 Gait (FIM): 6 Distance (FIM): 3=150 ft Gait Distance Comment: 300' Gait Level of Assist: 6 Gait Assistive Device: None, FWW PT Plan Treatment/Plan Treatment Plan: Continue Plan of Care Treatment Plan: Education, Functional Activity Mable, Functional Strength, Gait, Safety, Therapeutic Exercise Treatment Duration: Oct 29, 2018 Frequency: 2 times per week Estimated Hrs Per Day: .25 hour per day Patient and/or Family Agrees t: Yes Discharge Recommendations Therapy D/C Recommendations: Home w/ Family Support, Home Independently Time/GCodes Time In: 1423 Time Out: 1433 Total Billed Treatment Time: 10 Total Billed Treatment 1 visit EVLow 10 min HORACIO WEBER PT Oct 28, 2018 15:05
[2018-10-28 16:00] VITALS: BP 164/79
[2018-10-28 20:11] VITALS: BP 161/83
--- NOTE | 2018-10-28 20:16 | Progress Note ---
Subjective Date Seen by a Provider: Oct 28, 2018 Time Seen by a Provider: 12:40 Subjective/Events-last exam Fwup UTI with sepsis, nonSTEMI, Hx. of PAF, Hypertension, Hypokalemia, Hypomagnesemia. C/O nausea/no appetite as well as short of air at night when lies down. Objective Exam Vital Signs Date Time Temp Pulse Resp B/P (MAP) Pulse Ox O2 Delivery O2 Flow Rate FiO2 10/28/18 18:25 95 Room Air 10/28/18 16:00 98.8 80 18 164/79 (107) 95 Room Air 10/28/18 14:30 96 Room Air 10/28/18 13:21 97.9 72 20 152/50 (84) 96 Room Air 10/28/18 11:08 93 Room Air 10/28/18 08:07 98.0 89 18 173/83 (113) 94 Room Air 10/28/18 08:00 Room Air 10/28/18 06:16 93 Nasal Cannula 0.50 10/28/18 04:00 98.6 85 22 150/90 (110) 94 Nasal Cannula 2.00 10/28/18 01:55 97 Nasal Cannula 2.00 10/27/18 23:37 99.5 69 22 162/81 (108) 93 Room Air 10/27/18 22:08 92 Room Air I & O 10/28/18 07:00 Intake Total 1370 ml Balance 1370 ml Capillary Refill : Less Than 3 Seconds General Appearance: No Apparent Distress Neck: Supple Respiratory: Lungs Clear Cardiovascular: Regular Rate, Rhythm Gastrointestinal: normal bowel sounds, non tender, soft Extremity: Non Tender, No Calf Tenderness, Pedal Edema Neurologic/Psychiatric: Alert, Oriented x3 Skin: Warm/Dry Results Lab Laboratory Tests 10/28/18 05:19: White Blood Count 8.5, Red Blood Count 3.89L, Hemoglobin 11.1L, Hematocrit 34L, Mean Corpuscular Volume 87, Mean Corpuscular Hemoglobin 29, Mean Corpuscular Hemoglobin Concent 33, Red Cell Distribution Width 15.3H, Platelet Count 127L, Mean Platelet Volume 11.6H, Neutrophils (%) (Auto) 70, Lymphocytes (%) (Auto) 15, Monocytes (%) (Auto) 8, Eosinophils (%) (Auto) 7, Basophils (%) (Auto) 1, Neutrophils # (Auto) 5.9, Lymphocytes # (Auto) 1.3, Monocytes # (Auto) 0.7, Eosinophils # (Auto) 0.6H, Basophils # (Auto) 0.1, Sodium Level 143, Potassium Level 3.8, Chloride Level 117H, Carbon Dioxide Level 18L, Anion Gap 8, Blood Urea Nitrogen 13, Creatinine 1.11, Estimat Glomerular Filtration Rate 46, BUN/Creatinine Ratio 12, Glucose Level 74, Calcium Level 8.5, Corrected Calcium 9.6, Magnesium Level 1.4L, Total Bilirubin 1.2H, Aspartate Amino Transf (AST/SG OT) 24, Alanine Aminotransferase (ALT/SGPT) 16, Alkaline Phosphatase 99, B-Type Natriuretic Peptide 1382.8H, Total Protein 4.9L, Albumin 2.6L 10/28/18 11:30: Phosphorus Level 2.1L Microbiology 10/23/18 Blood Culture - Final, Complete No growth 10/24/18 MRSA Screen - Final, Complete MRSA not isolated 10/23/18 Urine Culture - Final, Complete Escherichia coli Assessment/Plan Assessment/Plan Assess & Plan/Chief Complaint 1. UTI with Sepsis--switched to rocephin 2. Hypokalemia and Hypomagnesemia--replace via oral route 3. Non STEMI--medical management with further workup after sepsis treated as patient is not symptomatic, rechecking ECHO today due to orthopnea 4. Hx of Paroxysmal Atrial Fibrillation--in NSR 5. Hypertension--increase lisinopril dose back to 20mg po q HS as per home dose 6. Hypoxia--still requiring nocturnal oxygen 7. Orthopnea--with edema, likely fluid overload so given lasix this morning Clinical Quality Measures Admission Status Admission Dx 1. Febrile Illness with Neutropenia/SIRS--admit, cover with zosyn, pancultures, monitor lactic acid 2. Hypertension--BP currently stable so will monitor BP and restart home meds if needed 3. Chest Pain with Elevated Troponin--only one episode of CP so will repeat cardiac enzymes, check 2-D ECHO and consult cardiology 4. Hypoxia--on oxygen 5. History of Paroxysmal Atrial Fibrillation--in NSR and reports only 1 episode about 2 years ago DVT/VTE Risk/Contraindication: Risk Factor Score Per Nursin RFS Level Per Nursing on Admit: 4+=Very High CARRIE ELLIS DO Oct 28, 2018 20:16
[2018-10-28] MEDS: lisINopril 20 MG (PRINIVIL) TABLET PO SCH (21:01)
[2018-10-28] MEDS: ALPRAZolam 0.25 MG (XANAX) TAB PO PRN (21:06)
[2018-10-29] VITALS (7 sets, daily range): BP systolic 130–189; BP diastolic 64–84
[2018-10-29] MEDS: RT-ALBUTEROL/IPRATROPIUM 3 ML (DUONEB) VIAL INH SCH ×6 (01:45→21:40)
[2018-10-29 06:10] LABS: BASOPHILS % (AUTO) 1 % (0-10); EOSINOPHILS # (AUTO) 0.6 10^3/uL (0.0-0.3); EOSINOPHILS % (AUTO) 9 % (0-10); HEMATOCRIT 32 % (35-52); HEMOGLOBIN 10.8 G/DL (11.5-16.0); LYMPHOCYTES # (AUTO) 1.2 X 10^3 (1.0-4.0); LYMPHOCYTES % (AUTO) 19 % (12-44); MEAN CORPUSCULAR HEMOGLOBIN 29 PG (25-34); MEAN CORPUSCULAR HGB CONC 33 G/DL (32-36); MEAN CORPUSCULAR VOLUME 86 FL (80-99); MONOCYTES # (AUTO) 0.8 X 10^3 (0.0-1.0); MONOCYTES % (AUTO) 13 % (0-12); NEUTROPHILS # (AUTO) 3.5 X 10^3 (1.8-7.8); NEUTROPHILS % (AUTO) 58 % (42-75); PLATELET COUNT 115 10^3/uL (130-400); RED CELL DISTRIBUTION WIDTH 14.9 % (10.0-14.5)
[2018-10-29 06:30] LABS: ALBUMIN 2.5 GM/DL (3.2-4.5); BILIRUBIN,TOTAL 0.9 MG/DL (0.1-1.0); CALCIUM 8.5 MG/DL (8.5-10.1); CREATININE SERUM 0.94 MG/DL (0.60-1.30); MAGNESIUM 1.8 MG/DL (1.6-2.4); POTASSIUM 3.5 MMOL/L (3.6-5.0); TOTAL PROTEIN 4.7 GM/DL (6.4-8.2)
[2018-10-29] MEDS ORDERED: FUROSEMIDE 40 MG/4 ML INJ (LASIX) IVP NR (08:00)
--- NOTE | 2018-10-29 08:09 | Cardiology Progress Note ---
Subjective Date Seen by Provider: Oct 29, 2018 Time Seen by Provider: 08:07 Subjective/Events-last exam Patient is in bed, having worsening orthopnea, no chest pain Review of Systems General: No Chills, No Night Sweats; Fatigue, Malaise; No Appetite, No Other HEENT: No Head Aches, No Visual Changes, No Eye Pain, No Ear Pain, No Dysphasia, No Sinus Congestion, No Post Nasal Drip, No Sore Throat, No Other Pulmonary: Dyspnea; No Cough, No Pleuritic Chest Pain, No Other Cardiovascular: No: Chest Pain, Palpitations, Orthopnea, Paroxysmal Noc. Dyspnea, Edema, Lt Headedness, Other Objective-Cardiology Exam Last Set of Vital Signs Vital Signs 10/29/18 10/29/18 10/29/18 10/29/18 01:45 04:10 07:06 07:40 Temp 98.6 Pulse 88 Resp 20 B/P (MAP) 178/81 (113) Pulse Ox 93 O2 Delivery Room Air O2 Flow Rate 2.00 FiO2 21 Capillary Refill : Less Than 3 Seconds I&O Intake and Output 10/29/18 00:00 Intake Total 1490 ml Output Total 2450 ml Balance -960 ml Intake Oral 1290 ml IV Total 200 ml Output Urine Total 2450 ml # Voids 1 # Bowel Movements 2 General: Alert, Oriented X3, Cooperative HEENT: Atraumatic, PERRLA Neck: Supple, No JVD, No Thyromegaly Lungs: Normal Air Movement, Other (Bilateral rhonchi) Heart: Regular Rate, Normal S1, Normal S2, No Murmurs Abdomen: Normal Bowel Sounds, Soft, No Tenderness, No Hepatosplenomegaly, No Masses Extremities: No Clubbing, No Cyanosis, No Edema, Normal Pulses, No Tenderness/Swelling Skin: No Rashes, No Breakdown, No Significant Lesion Neuro: Normal Gait, Normal Speech, Strength at 5/5 X4 Ext, Normal Tone, Sensation Intact Psych/Mental Status: Mental Status NL, Mood NL Results Lab Laboratory Tests 10/29/18 06:04 A/P-Cardiology Admission Diagnosis Fever Elevated troponin level Hypertension Paroxysmal atrial fibrillation Assessment/Plan Status post sepsis, secondary to urosepsis with Escherichia coli. Receiving antibiotic and improving. Increasing orthopnea, bilateral rhonchi on exam, increase lasix to 40 BID and monitor Hypomagnesemia, replace and monitor Non-ST elevation myocardial infarction, probably type II [place] secondary to sepsis, underlying coronary artery disease cannot be ruled out entirely. continue with conservative management Status post acute renal insufficiency, better at this time Personal history of paroxysmal atrial fibrillation reported episode of atrial fibrillation about 2 years ago that improved after taking metoprolol, reporting improvement no further episode of palpitation, has been following with a tape coater in [place], not on anticoagulation. Hypertension, started back on lisinopril, continue on metoprolol and monitor blood pressure Recent toe infection, had good dorsalis pedis pulse, no signs of infection at this time. Clinical Quality Measures DVT/VTE Risk/Contraindication: Risk Factor Score Per Nursin RFS Level Per Nursing on Admit: 4+=Very High DAVID GRAYSON MD Oct 29, 2018 08:09
[2018-10-29] MEDS: amLODIPine 2.5MG (NORVASC) TAB PO SCH (08:32)
[2018-10-29] MEDS: MAGNESIUM OXIDE (MAG-OX)400 MG TAB PO SCH ×2 (08:32→17:23)
[2018-10-29] MEDS: PANTOPRAZOLE 40 MG (PROTONIX) TAB PO SCH (08:32)
[2018-10-29] MEDS: ASPIRIN E.C. 81 MG (ECOTRIN) TAB PO SCH (08:32)
[2018-10-29] MEDS: FUROSEMIDE 40 MG/4 ML INJ (LASIX) IVP SCH ×2 (08:33→16:47)
--- NOTE | 2018-10-29 08:44 | Pulmonary Progress Note ---
Subjective Time Seen by a Provider: 12:35 Subjective/Events-last exam Complains of nocturnal SOB/hypoxia Sepsis Event Evaluation Height, Weight, BMI Height: 5'0.00" Weight: 116lbs. 4.0oz. 52.224864ip; 22.7 BMI Method:Stated Exam Exam Vital Signs Date Time Temp Pulse Resp B/P (MAP) Pulse Ox O2 Delivery O2 Flow Rate FiO2 10/29/18 08:00 99.1 93 16 160/64 (96) 93 Room Air 10/29/18 07:40 88 93 21 10/29/18 07:06 93 Room Air 10/29/18 04:10 98.6 88 20 178/81 (113) 93 Nasal Cannula 10/29/18 01:45 96 Nasal Cannula 2.00 10/29/18 00:10 98.2 84 20 163/84 (110) 94 Room Air 10/28/18 21:34 93 Room Air 10/28/18 20:30 Room Air 10/28/18 20:11 98.4 81 18 161/83 (109) 94 Room Air 10/28/18 18:25 95 Room Air 10/28/18 16:00 98.8 80 18 164/79 (107) 95 Room Air 10/28/18 14:30 96 Room Air 10/28/18 13:21 97.9 72 20 152/50 (84) 96 Room Air 10/28/18 11:08 93 Room Air I & O 10/29/18 07:00 Intake Total 1290 ml Output Total 2450 ml Balance -1160 ml Height & Weight Height: 5'0.00" Weight: 116lbs. 4.0oz. 52.659159pq; 22.7 BMI Method:Stated General Appearance: No Apparent Distress HEENT: PERRL/EOMI, Normal ENT Inspection, Pharynx Normal Neck: Supple Respiratory: Lungs Clear Cardiovascular: Regular Rate, Rhythm Capillary Refill: Less Than 3 Seconds Gastrointestinal: normal bowel sounds, non tender, soft Extremity: Non Tender, No Calf Tenderness, Pedal Edema Neurologic/Psychiatric: Alert, Oriented x3 Skin: Warm/Dry Lymphatic: No Adenopathy Results Lab Laboratory Tests 10/28/18 05:19 10/29/18 06:04 Assessment/Plan Assessment/Plan Severe sepsis with bacteremia with GNR secondary - much improved -Zosyn Pulmonary edema with bilateral pleural effusion secondary to IVF from sepsis -repeat lasix today Acute renal failure -Monitor Metabolic lactic acidosis Thrombocytopenia -monitor ELIDA BLUM DO Oct 29, 2018 08:44
[2018-10-29] MEDS ORDERED: KCL 20 MEQ TAB (K-DUR) PO NR (08:45)
--- NOTE | 2018-10-29 09:59 | Physical Therapy Daily Note ---
PT Daily Note-Current Subjective Patient agrees to PT. She reports she is up independently in room and hallway. Pain Numeric Pain Scale: 0-No Pain Location: No Pain Reported Mental Status Patient Orientation: Normal For Age Transfers Therapy Code Descriptions/Definitions Functional Loving Measure: 0=Not Assessed/NA 4=Minimal Assistance 1=Total Assistance 5=Supervision or Setup 2=Maximal Assistance 6=Modified Loving 3=Moderate Assistance 7=Complete Loving Therapy Quality Codes: 6 Independent with activity with or without an assistive device 5 Patient requires set up or clean up by helper. Patient completes activity by themselves 4 Supervision or touching assist (CGA). [place] provide cues , steadying assist 3 The helper provides less than half the effort to complete the activity 2 The helper provides more than half the effort to complete the activity 1 Dependent. The helper does all the effort to complete an activity 7 Patient refused to complete or attempt activity 9 The patient did not perform the activity before the current illness or injury 88 Not attempted due to Medical conditions or safety concerns Transfers (B, C, W/C) (FIM): 7 Scootin Sit to/from Stand: 7 Gait Training Gait (FIM): 6 Distance (FIM): 3=150 ft Distance: 300' Gait Level of Assist: 6 Gait Assistive Device: FWW safe and functional with no deviation. Assessment Patient is up in room and hallway without difficulty. PT instructed patient to continue with this and notified nursing as well. PT to dismiss patient from services due to PLOF. PT Short Term Goals Short Term Goals Time Frame: Oct 29, 2018 Transfers (B,C,W/C) (FIM): 7 Gait (FIM): 6 Distance (FIM): 3=150 ft Gait Distance Comment: 300' Gait Level of Assist: 6 Gait Assistive Device: None, FWW PT Plan Treatment/Plan Treatment Plan: Discontinue PT, goals met Treatment Plan: Education, Functional Activity Mable, Functional Strength, Gait, Safety, Therapeutic Exercise Treatment Duration: Oct 29, 2018 Frequency: 2 times per week Estimated Hrs Per Day: .25 hour per day Patient and/or Family Agrees t: Yes Time/GCodes Time In: 940 Time Out: 949 Total Billed Treatment Time: 9 Total Billed Treatment 1 visit FA 9 min HORACIO WEBER PT Oct 29, 2018 09:59
--- NOTE | 2018-10-29 10:34 | Diagnostic Imaging Report ---
INDICATION: Followup shortness of breath COMPARISON: 10/28/18 FINDINGS: Bilateral pleural effusions greater left showed mild reduction from prior. Vascular distention improved. Perihilar edema decreased. IMPRESSION: Likely improvements in sequelae of failure pattern and/or hypervolemia. No adverse change Dictated by: Dictated on workstation # [id number]
--- NOTE | 2018-10-29 10:50 | NUR ---
Pt feels she is improving. She is using Oxygen at night intermittently. If she needs oxygen at home will need a overnight pulse oximetry with her oxygen level falling to 88% or below for five minutes no more then 2 days prior to discharge. Will follow and assist.
[2018-10-29] MEDS: cefTRIAXone 1,000 MG/SWFI 10 ML IV PUSH IV SCH ×2 (11:41)
--- NOTE | 2018-10-29 18:24 | Progress Note ---
Subjective Date Seen by a Provider: Oct 29, 2018 Time Seen by a Provider: 12:30 Subjective/Events-last exam Fwup UTI with sepsis, nonSTEMI, Hx. of PAF, Hypertension, Hypokalemia, Hypomagnesemia. Nausea better. Had shortness of air episode overnight. Diuresed well with lasix yesterday. Objective Exam Vital Signs Date Time Temp Pulse Resp B/P (MAP) Pulse Ox O2 Delivery O2 Flow Rate FiO2 10/29/18 16:00 98.9 75 18 189/83 (118) 94 Room Air 10/29/18 14:50 93 Room Air 10/29/18 11:40 97.4 76 16 130/66 (87) 93 Room Air 10/29/18 11:01 93 Room Air 10/29/18 08:00 99.1 93 16 160/64 (96) 93 Room Air 10/29/18 08:00 Room Air 10/29/18 07:40 88 93 21 10/29/18 07:06 93 Room Air 10/29/18 04:10 98.6 88 20 178/81 (113) 93 Nasal Cannula 10/29/18 01:45 96 Nasal Cannula 2.00 10/29/18 00:10 98.2 84 20 163/84 (110) 94 Room Air 10/28/18 21:34 93 Room Air 10/28/18 20:30 Room Air 10/28/18 20:11 98.4 81 18 161/83 (109) 94 Room Air 10/28/18 18:25 95 Room Air I & O 10/29/18 07:00 Intake Total 1290 ml Output Total 2450 ml Balance -1160 ml Capillary Refill : Less Than 3 Seconds General Appearance: No Apparent Distress Neck: Supple Respiratory: Crackles, Decreased Breath Sounds Cardiovascular: Regular Rate, Rhythm Gastrointestinal: normal bowel sounds, non tender, soft Extremity: Non Tender, No Calf Tenderness, Pedal Edema Neurologic/Psychiatric: Alert, Oriented x3 Skin: Warm/Dry Results Lab Laboratory Tests 10/29/18 06:04: White Blood Count 6.0, Red Blood Count 3.76L, Hemoglobin 10.8L, Hematocrit 32L, Mean Corpuscular Volume 86, Mean Corpuscular Hemoglobin 29, Mean Corpuscular Hemoglobin Concent 33, Red Cell Distribution Width 14.9H, Platelet Count 115L, Mean Platelet Volume 12.0H, Neutrophils (%) (Auto) 58, Lymphocytes (%) (Auto) 19, Monocytes (%) (Auto) 13H, Eosinophils (%) (Auto) 9, Basophils (%) (Auto) 1, Neutrophils # (Auto) 3.5, Lymphocytes # (Auto) 1.2, Monocytes # (Auto) 0.8, Eosinophils # (Auto) 0.6H, Basophils # (Auto) 0.0, Sodium Level 144, Potassium Level 3.5L, Chloride Level 114H, Carbon Dioxide Level 20L, Anion Gap 10, Blood Urea Nitrogen 13, Creatinine 0.94, Estimat Glomerular Filtration Rate 56, BUN/Creatinine Ratio 14, Glucose Level 82, Calcium Level 8.5, Corrected Calcium 9.7, Phosphorus Level 2.3, Magnesium Level 1.8, Total Bilirubin 0.9, Aspartate Amino Transf (AST/SGOT) 20, Alanine Aminotransferase (ALT/SGPT) 18, Alkaline Phosphatase 92, B-Type Natriuretic Peptide 1400.8H, Total Protein 4.7L, Albumin 2.5L Microbiology 10/23/18 Blood Culture - Final, Complete No growth 10/24/18 MRSA Screen - Final, Complete MRSA not isolated 10/23/18 Urine Culture - Final, Complete Escherichia coli Assessment/Plan Assessment/Plan Assess & Plan/Chief Complaint 1. UTI with Sepsis--switched to rocephin 2. Hypokalemia and Hypomagnesemia--replace via oral route 3. Non STEMI--medical management with further workup after sepsis treated as patient is not symptomatic 4. Hx of Paroxysmal Atrial Fibrillation--in NSR 5. Hypertension--back on home meds 6. Hypoxia--still requiring nocturnal oxygen 7. Orthopnea/Pulmonary Edema--BNP higher this morning so lasix dose increased to BID and will reassess tomorrow Clinical Quality Measures Admission Status Admission Dx 1. Febrile Illness with Neutropenia/SIRS--admit, cover with zosyn, pancultures, monitor lactic acid 2. Hypertension--BP currently stable so will monitor BP and restart home meds if needed 3. Chest Pain with Elevated Troponin--only one episode of CP so will repeat cardiac enzymes, check 2-D ECHO and consult cardiology 4. Hypoxia--on oxygen 5. History of Paroxysmal Atrial Fibrillation--in NSR and reports only 1 episode about 2 years ago DVT/VTE Risk/Contraindication: Risk Factor Score Per Nursin RFS Level Per Nursing on Admit: 4+=Very High CARRIE ELLIS DO Oct 29, 2018 18:24
[2018-10-29] MEDS: ALPRAZolam 0.25 MG (XANAX) TAB PO PRN (20:49)
[2018-10-29] MEDS: lisINopril 20 MG (PRINIVIL) TABLET PO SCH (20:50)
[2018-10-30 01:28] VITALS: BP 169/83
[2018-10-30] MEDS: RT-ALBUTEROL/IPRATROPIUM 3 ML (DUONEB) VIAL INH SCH ×6 (02:52→22:44)
[2018-10-30 04:00] VITALS: BP 165/76
[2018-10-30 05:42] LABS: BASOPHILS % (AUTO) 0 % (0-10); EOSINOPHILS # (AUTO) 0.3 10^3/uL (0.0-0.3); EOSINOPHILS % (AUTO) 5 % (0-10); HEMATOCRIT 32 % (35-52); HEMOGLOBIN 10.7 G/DL (11.5-16.0); LYMPHOCYTES # (AUTO) 0.8 X 10^3 (1.0-4.0); LYMPHOCYTES % (AUTO) 13 % (12-44); MEAN CORPUSCULAR HEMOGLOBIN 29 PG (25-34); MEAN CORPUSCULAR HGB CONC 33 G/DL (32-36); MEAN CORPUSCULAR VOLUME 86 FL (80-99); MONOCYTES # (AUTO) 0.7 X 10^3 (0.0-1.0); MONOCYTES % (AUTO) 11 % (0-12); NEUTROPHILS # (AUTO) 4.3 X 10^3 (1.8-7.8); NEUTROPHILS % (AUTO) 71 % (42-75); PLATELET COUNT 137 10^3/uL (130-400); RED CELL DISTRIBUTION WIDTH 15.1 % (10.0-14.5); WHITE BLOOD COUNT 6.1 10^3/uL (4.3-11.0)
[2018-10-30 05:57] LABS: ALBUMIN 2.6 GM/DL (3.2-4.5); BILIRUBIN,TOTAL 0.9 MG/DL (0.1-1.0); CALCIUM 8.7 MG/DL (8.5-10.1); CREATININE SERUM 0.95 MG/DL (0.60-1.30); MAGNESIUM 1.2 MG/DL (1.6-2.4); POTASSIUM 3.4 MMOL/L (3.6-5.0); TOTAL PROTEIN 4.9 GM/DL (6.4-8.2)
[2018-10-30] MEDS: FUROSEMIDE 40 MG/4 ML INJ (LASIX) IVP SCH (05:58)
[2018-10-30 08:00] VITALS: BP 170/82
--- NOTE | 2018-10-30 08:36 | Cardiology Progress Note ---
Subjective Date Seen by Provider: Oct 30, 2018 Time Seen by Provider: 08:34 Subjective/Events-last exam Patient sitting up at side of bed, states dyspnea has significantly improved. Denies any chest pain. Denies dizziness. Review of Systems General: No Chills, No Night Sweats, No Fatigue, No Malaise, No Appetite, No Other HEENT: No Head Aches, No Visual Changes, No Eye Pain, No Ear Pain, No Dysphasia, No Sinus Congestion, No Post Nasal Drip, No Sore Throat, No Other Pulmonary: Dyspnea; No Cough, No Pleuritic Chest Pain, No Other Cardiovascular: No: Chest Pain, Palpitations, Orthopnea, Paroxysmal Noc. Dyspnea, Edema, Lt Headedness, Other Objective-Cardiology Exam Last Set of Vital Signs Vital Signs 10/29/18 10/29/18 10/30/18 10/30/18 01:45 07:40 04:00 10:19 Temp 99.3 Pulse 96 Resp 20 B/P (MAP) 165/76 (105) Pulse Ox 94 O2 Delivery Room Air O2 Flow Rate 2.00 FiO2 21 Capillary Refill : Less Than 3 Seconds I&O Intake and Output 10/30/18 00:00 Intake Total 1555 ml Output Total 3200 ml Balance -1645 ml Intake Oral 1545 ml IV Total 10 ml Output Urine Total 3200 ml # Bowel Movements 3 General: Alert, Oriented X3, Cooperative HEENT: Atraumatic, PERRLA Neck: Supple, No JVD, No Thyromegaly Lungs: Clear to Auscultation, Normal Air Movement Heart: Regular Rate, Normal S1, Normal S2, No Murmurs Abdomen: Normal Bowel Sounds, Soft, No Tenderness, No Hepatosplenomegaly, No Masses Extremities: No Clubbing, No Cyanosis, No Edema, Normal Pulses, No Tenderness/Swelling Skin: No Rashes, No Breakdown, No Significant Lesion Neuro: Normal Gait, Normal Speech, Strength at 5/5 X4 Ext, Normal Tone, Sensation Intact Psych/Mental Status: Mental Status NL, Mood NL Results Lab Laboratory Tests 10/30/18 05:22 A/P-Cardiology Admission Diagnosis Fever Elevated troponin level Hypertension Paroxysmal atrial fibrillation Assessment/Plan Status post sepsis, secondary to urosepsis with Escherichia coli. Receiving antibiotic and improving. Orthopnea, improved. Responded well to Lasix. I will change Lasix to oral and monitor tolerance and response Hypomagnesemia, I will give additional dose of 2 g IV magnesium and continue on the oral replacement and monitor Non-ST elevation myocardial infarction, probably type II [place] secondary to sepsis, underlying coronary artery disease cannot be ruled out entirely. I recommended cardiac catheterization to be done as an outpatient, patient requested to do it with her primary structural designer. Status post acute renal insufficiency, better at this time, continue to monitor renal function Personal history of paroxysmal atrial fibrillation reported episode of atrial fibrillation about 2 years ago that improved after taking metoprolol, reporting improvement no further episode of palpitation, has been following with a structural designer in [place], not on anticoagulation. Hypertension, started back on lisinopril, continue on metoprolol and monitor blood pressure Recent toe infection, had good dorsalis pedis pulse, no signs of infection at this time. Clinically better okay for discharge from cardiology standpoint Clinical Quality Measures DVT/VTE Risk/Contraindication: Risk Factor Score Per Nursin RFS Level Per Nursing on Admit: 4+=Very High Supervisory-Addendum Brief Supervisory Addendum Participated in pt care: history, MDM, physical Personally performed: exam, history, MDM Care discussed with: DARYN Notes: patient is feeling better, breathing better, on examination lungs were clear to auscultation bilaterally, heart is regular, I changed Lasix to oral, replace magnesium and discussed the need for cardiac catheterization which can be done as an outpatient, patient requested to do it with her primary structural designer in [place] when she leaves. I recommend monitoring renal function as an outpatient. FREDERIC NEVAREZ Oct 30, 2018 08:36 DAVID GRAYSON MD Oct 30, 2018 10:54
[2018-10-30] MEDS: amLODIPine 2.5MG (NORVASC) TAB PO SCH (10:07)
[2018-10-30] MEDS: MAGNESIUM OXIDE (MAG-OX)400 MG TAB PO SCH ×2 (10:07→17:07)
[2018-10-30] MEDS: ASPIRIN E.C. 81 MG (ECOTRIN) TAB PO SCH (10:07)
[2018-10-30] MEDS: PANTOPRAZOLE 40 MG (PROTONIX) TAB PO SCH (10:07)
--- NOTE | 2018-10-30 11:13 | Physician Query Clarification ---
PQ-Intro New Diagnosis Admission/Discharge Admission Date: Oct 23, 2018 at 07:11 Discharge Date: The medical record reflects the following clinical scenario: History/Risk Factors: Severe Sepsis UTI Clinical Findings: Lactic acid 4.07 Treatment:IV fluids and monitoring for elevated lactic acid. Question: What condition best reflects the above clinical scenario? Please document a response in the Progress Noter or Discharge Summary. 1. Severe sepsis with septic shock. 2. Severe sepsis without septic shock. 3. Other, with explanation of the clinical findings. 4. Clinically undetermined, no explanation for the clinical findings. PHYSICIAN RESPONSE What condition reflects above: 2 Please remember a lack of response to the above will prompt a phone page by [facility] staff. In responding to this query, please exercise your independent professional judgment. The purpose of this communication is to more accurately reflect the complexity of your patients condition. The fact that a question is asked does not imply that any particular answer is desired or expected. Thank you for your timely response to this clarification. Requestors name: Eve Pierce [facility] Phone # ext [phone] or [phone] THIS PHYSICIAN QUERY FORM IS A PERMANENT PART OF THE MEDICAL RECORD EVE PIERCE Oct 30, 2018 11:13 CARRIE ELLIS DO Oct 31, 2018 12:33
[2018-10-30 12:00] VITALS: BP 156/90
[2018-10-30] MEDS: MAGNESIUM 1 GM/100 ML IVPB 100 ML IV SCH ×2 (12:27→12:28)
[2018-10-30] MEDS: cefTRIAXone 1,000 MG/SWFI 10 ML IV PUSH IV SCH ×2 (12:28)
--- NOTE | 2018-10-30 12:31 | Pulmonary Progress Note ---
Subjective Time Seen by a Provider: 12:34 Subjective/Events-last exam Appears to be improving. Sepsis Event Evaluation Height, Weight, BMI Height: 5'0.00" Weight: 116lbs. 4.0oz. 52.722848aw; 22.7 BMI Method:Stated Exam Exam Vital Signs Date Time Temp Pulse Resp B/P (MAP) Pulse Ox O2 Delivery O2 Flow Rate FiO2 10/30/18 10:19 94 Room Air 10/30/18 08:00 98.9 91 18 170/82 (111) 92 Room Air 10/30/18 07:00 92 Room Air 10/30/18 04:00 99.3 96 20 165/76 (105) 91 Room Air 10/30/18 02:52 90 Room Air 10/30/18 01:28 99.1 84 24 169/83 (111) 93 Room Air 10/29/18 21:40 92 Room Air 10/29/18 20:00 99.6 84 18 132/80 (97) 95 Room Air 10/29/18 18:49 94 Room Air 10/29/18 16:00 98.9 75 18 189/83 (118) 94 Room Air 10/29/18 14:50 93 Room Air I & O 10/30/18 07:00 Intake Total 1755 ml Output Total 4250 ml Balance -2495 ml Height & Weight Height: 5'0.00" Weight: 116lbs. 4.0oz. 52.189919id; 22.7 BMI Method:Stated General Appearance: No Apparent Distress HEENT: PERRL/EOMI, Normal ENT Inspection, Pharynx Normal Neck: Supple Respiratory: Crackles, Decreased Breath Sounds Cardiovascular: Regular Rate, Rhythm Capillary Refill: Less Than 3 Seconds Gastrointestinal: normal bowel sounds, non tender, soft Extremity: Non Tender, No Calf Tenderness, Pedal Edema Neurologic/Psychiatric: Alert, Oriented x3 Skin: Warm/Dry Lymphatic: No Adenopathy Results Lab Laboratory Tests 10/29/18 06:04 10/30/18 05:22 Assessment/Plan Assessment/Plan Severe sepsis with bacteremia with GNR secondary - much improved -Rocephin Pulmonary edema with bilateral pleural effusion secondary to IVF from sepsis - lasix Acute renal failure -Monitor Metabolic lactic acidosis Thrombocytopenia -monitor ELIDA BLUM DO Oct 30, 2018 12:31
--- NOTE | 2018-10-30 12:43 | Progress Note ---
Subjective Date Seen by a Provider: Oct 30, 2018 Time Seen by a Provider: 08:35 Subjective/Events-last exam Fwup UTI with sepsis, nonSTEMI, Hx. of PAF, Hypertension, Hypokalemia, Hypomagnesemia. Orthopnea better last night. Objective Exam Vital Signs Date Time Temp Pulse Resp B/P (MAP) Pulse Ox O2 Delivery O2 Flow Rate FiO2 10/30/18 10:19 94 Room Air 10/30/18 08:00 98.9 91 18 170/82 (111) 92 Room Air 10/30/18 07:00 92 Room Air 10/30/18 04:00 99.3 96 20 165/76 (105) 91 Room Air 10/30/18 02:52 90 Room Air 10/30/18 01:28 99.1 84 24 169/83 (111) 93 Room Air 10/29/18 21:40 92 Room Air 10/29/18 20:00 99.6 84 18 132/80 (97) 95 Room Air 10/29/18 18:49 94 Room Air 10/29/18 16:00 98.9 75 18 189/83 (118) 94 Room Air 10/29/18 14:50 93 Room Air I & O 10/30/18 07:00 Intake Total 1755 ml Output Total 4250 ml Balance -2495 ml Capillary Refill : Less Than 3 Seconds General Appearance: No Apparent Distress Neck: Supple Respiratory: Lungs Clear Cardiovascular: Regular Rate, Rhythm, Systolic Murmur, Gallop/S4 Gastrointestinal: normal bowel sounds, non tender, soft Extremity: Non Tender, No Calf Tenderness, Pedal Edema (but improving) Skin: Warm/Dry Results Lab Laboratory Tests 10/30/18 05:22: White Blood Count 6.1, Red Blood Count 3.73L, Hemoglobin 10.7L, Hematocrit 32L, Mean Corpuscular Volume 86, Mean Corpuscular Hemoglobin 29, Mean Corpuscular Hemoglobin Concent 33, Red Cell Distribution Width 15.1H, Platelet Count 137, Mean Platelet Volume 11.0H, Neutrophils (%) (Auto) 71, Lymphocytes (%) (Auto) 1 3, Monocytes (%) (Auto) 11, Eosinophils (%) (Auto) 5, Basophils (%) (Auto) 0, Neutrophils # (Auto) 4.3, Lymphocytes # (Auto) 0.8L, Monocytes # (Auto) 0.7, Eosinophils # (Auto) 0.3, Basophils # (Auto) 0.0, Sodium Level 142, Potassium Level 3.4L, Chloride Level 108H, Carbon Dioxide Level 23, Anion Gap 11, Blood Urea Nitrogen 13, Creatinine 0.95, Estimat Glomerular Filtration Rate 56, BUN/Creatinine Ratio 14, Glucose Level 86, Calcium Level 8.7, Corrected Calcium 9.8, Phosphorus Level 2.8, Magnesium Level 1.2L, Total Bilirubin 0.9, Aspartate Amino Transf (AST/SGOT) 20, Alanine Aminotransferase (ALT/SGPT) 12, Alkaline Phosphatase 91, Total Protein 4.9L, Albumin 2.6L Microbiology 10/23/18 Blood Culture - Final, Complete No growth 10/24/18 MRSA Screen - Final, Complete MRSA not isolated 10/23/18 Urine Culture - Final, Complete Escherichia coli Assessment/Plan Assessment/Plan Assess & Plan/Chief Complaint 1. UTI with Sepsis--switched to rocephin 2. Hypokalemia and Hypomagnesemia--replace via IV and oral route 3. Non STEMI--medical management with further workup after sepsis treated as patient is not symptomatic 4. Hx of Paroxysmal Atrial Fibrillation--in NSR 5. Hypertension--back on home meds 6. Hypoxia--improving 7. Orthopnea/Pulmonary Edema--improving so switched to oral lasix 8. DC plans tomorrow with Home Health Clinical Quality Measures Admission Status Admission Dx 1. Febrile Illness with Neutropenia/SIRS--admit, cover with zosyn, pancultures, monitor lactic acid 2. Hypertension--BP currently stable so will monitor BP and restart home meds if needed 3. Chest Pain with Elevated Troponin--only one episode of CP so will repeat cardiac enzymes, check 2-D ECHO and consult cardiology 4. Hypoxia--on oxygen 5. History of Paroxysmal Atrial Fibrillation--in NSR and reports only 1 episode about 2 years ago DVT/VTE Risk/Contraindication: Risk Factor Score Per Nursin RFS Level Per Nursing on Admit: 4+=Very High CARRIE ELLIS DO Oct 30, 2018 12:43
[2018-10-30] MEDS ORDERED: KCL 8 MEQ (MICRO K) TABLET PO NR (12:45)
--- NOTE | 2018-10-30 15:07 | NUR ---
Received order from Dr. Pickering to arrange Home Health upon pt discharge. She chose [facility] and will complete referral upon discharge.
[2018-10-30 16:10] VITALS: BP 167/91
[2018-10-30] MEDS ORDERED: KCL 8 MEQ (MICRO K) TABLET PO ONE (17:04)
[2018-10-30] MEDS: FUROSEMIDE 40 MG (LASIX) TAB PO SCH (17:07)
[2018-10-30] MEDS: lisINopril 20 MG (PRINIVIL) TABLET PO SCH (21:43)
[2018-10-30 21:44] VITALS: BP 177/92
[2018-10-30] MEDS: ALPRAZolam 0.25 MG (XANAX) TAB PO PRN (21:52)
[2018-10-31 00:18] VITALS: BP 175/83
[2018-10-31] MEDS: RT-ALBUTEROL/IPRATROPIUM 3 ML (DUONEB) VIAL INH SCH ×2 (02:26→10:31)
[2018-10-31 04:55] LABS: BASOPHILS % (AUTO) 1 % (0-10); EOSINOPHILS # (AUTO) 0.6 10^3/uL (0.0-0.3); EOSINOPHILS % (AUTO) 9 % (0-10); HEMATOCRIT 31 % (35-52); HEMOGLOBIN 10.4 G/DL (11.5-16.0); LYMPHOCYTES % (AUTO) 15 % (12-44); MEAN CORPUSCULAR HEMOGLOBIN 29 PG (25-34); MEAN CORPUSCULAR HGB CONC 33 G/DL (32-36); MEAN CORPUSCULAR VOLUME 87 FL (80-99); MEAN PLATELET VOLUME 11.7 FL (7.4-10.4); MONOCYTES # (AUTO) 0.7 X 10^3 (0.0-1.0); MONOCYTES % (AUTO) 11 % (0-12); NEUTROPHILS # (AUTO) 4.2 X 10^3 (1.8-7.8); NEUTROPHILS % (AUTO) 65 % (42-75); PLATELET COUNT 128 10^3/uL (130-400); WHITE BLOOD COUNT 6.5 10^3/uL (4.3-11.0)
[2018-10-31 05:23] LABS: CREATININE SERUM 0.91 MG/DL (0.60-1.30); POTASSIUM 3.6 MMOL/L (3.6-5.0)
[2018-10-31 05:24] LABS: ALBUMIN 2.5 GM/DL (3.2-4.5); BILIRUBIN,TOTAL 0.9 MG/DL (0.1-1.0); CALCIUM 8.5 MG/DL (8.5-10.1); MAGNESIUM 2.1 MG/DL (1.6-2.4); PHOSPHORUS 2.7 MG/DL (2.3-4.7); TOTAL PROTEIN 4.7 GM/DL (6.4-8.2)
[2018-10-31 05:57] VITALS: BP 167/78
[2018-10-31] MEDS: FUROSEMIDE 40 MG (LASIX) TAB PO SCH (06:01)
[2018-10-31 08:00] VITALS: BP 170/91
--- NOTE | 2018-10-31 08:14 | Cardiology Progress Note ---
Subjective Date Seen by Provider: Oct 31, 2018 Time Seen by Provider: 08:13 Subjective/Events-last exam Patient is feeling better and breathing better today. No new complaint. Review of Systems General: No Chills, No Night Sweats, No Fatigue, No Malaise, No Appetite, No Other HEENT: No Head Aches, No Visual Changes, No Eye Pain, No Ear Pain, No Dysphasia, No Sinus Congestion, No Post Nasal Drip, No Sore Throat, No Other Pulmonary: No Dyspnea, No Cough, No Pleuritic Chest Pain, No Other Cardiovascular: No: Chest Pain, Palpitations, Orthopnea, Paroxysmal Noc. Dyspnea, Edema, Lt Headedness, Other Objective-Cardiology Exam Last Set of Vital Signs Vital Signs 10/29/18 10/31/18 10/31/18 07:40 02:27 05:57 Temp 98.6 Pulse 80 Resp 20 B/P (MAP) 167/78 (107) Pulse Ox 94 O2 Delivery Room Air O2 Flow Rate 96.00 FiO2 21 Capillary Refill : Less Than 3 Seconds I&O Intake and Output 10/31/18 00:00 Intake Total 1010 ml Output Total 3200 ml Balance -2190 ml Intake Oral 1010 ml Output Urine Total 3200 ml # Bowel Movements 2 General: Alert, Oriented X3, Cooperative HEENT: Atraumatic, PERRLA Neck: Supple, No JVD, No Thyromegaly Lungs: Clear to Auscultation, Normal Air Movement Heart: Regular Rate, Normal S1, Normal S2, No Murmurs Abdomen: Normal Bowel Sounds, Soft, No Tenderness, No Hepatosplenomegaly, No Masses Extremities: No Clubbing, No Cyanosis, No Edema, Normal Pulses, No Tend erness/Swelling Skin: No Rashes, No Breakdown, No Significant Lesion Neuro: Normal Gait, Normal Speech, Strength at 5/5 X4 Ext, Normal Tone, Sensation Intact Psych/Mental Status: Mental Status NL, Mood NL Results Lab Laboratory Tests 10/31/18 04:33 A/P-Cardiology Admission Diagnosis Fever Elevated troponin level Hypertension Paroxysmal atrial fibrillation Assessment/Plan Status post sepsis, secondary to urosepsis with Escherichia coli. Receiving antibiotic and improving. Orthopnea, improved. Responded well to Lasix, continue on Lasix and monitor Hypomagnesemia, maintained on oral magnesium and monitor Non-ST elevation myocardial infarction, probably type II [place] secondary to sepsis, underlying coronary artery disease cannot be ruled out entirely. I recommended cardiac catheterization to be done as an outpatient, patient requested to do it with her primary battery plate remover. Status post acute renal insufficiency, better at this time, continue to monitor renal function Personal history of paroxysmal atrial fibrillation reported episode of atrial fibrillation about 2 years ago that improved after taking metoprolol, reporting improvement no further episode of palpitation, has been following with a battery plate remover in [place], not on anticoagulation. Hypertension, I will increase Toprol to 50 mg daily and monitor tolerance and response Recent toe infection, had good dorsalis pedis pulse, no signs of infection at this time. Clinically better okay for discharge from cardiology standpoint Clinical Quality Measures DVT/VTE Risk/Contraindication: Risk Factor Score Per Nursin RFS Level Per Nursing on Admit: 4+=Very High DAVID GRAYSON MD Oct 31, 2018 08:14
[2018-10-31] MEDS: ASPIRIN E.C. 81 MG (ECOTRIN) TAB PO SCH (08:15)
[2018-10-31] MEDS: amLODIPine 2.5MG (NORVASC) TAB PO SCH (08:16)
[2018-10-31] MEDS: PANTOPRAZOLE 40 MG (PROTONIX) TAB PO SCH (08:16)
[2018-10-31] MEDS: MAGNESIUM OXIDE (MAG-OX)400 MG TAB PO SCH (08:17)
--- NOTE | 2018-10-31 08:51 | Pulmonary Progress Note ---
Subjective Time Seen by a Provider: 08:51 Subjective/Events-last exam No complications noted. Sepsis Event Evaluation Height, Weight, BMI Height: 5'0.00" Weight: 116lbs. 4.0oz. [id number]; 22.7 BMI Method:Stated Exam Exam Vital Signs Date Time Temp Pulse Resp B/P (MAP) Pulse Ox O2 Delivery O2 Flow Rate FiO2 10/31/18 05:57 98.6 80 20 167/78 (107) 94 Room Air 10/31/18 02:27 88 Nasal Cannula 96.00 10/31/18 00:18 98.2 78 20 175/83 (113) 95 Nasal Cannula 1.00 10/30/18 22:44 88 Room Air 10/30/18 21:44 98.0 85 20 177/92 (120) 94 10/30/18 20:00 Room Air 10/30/18 18:21 92 Room Air 10/30/18 16:10 98.0 79 18 167/91 (116) 94 Room Air 10/30/18 14:06 94 Room Air 10/30/18 12:00 98.5 93 18 156/90 (112) 93 Room Air 10/30/18 10:19 94 Room Air I & O 10/31/18 07:00 Intake Total 960 ml Output Total 2500 ml Balance -1540 ml Height & Weight Height: 5'0.00" Weight: 116lbs. 4.0oz. 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 ELIDA BLMU DO Oct 31, 2018 08:51
[2018-10-31] MEDS ORDERED: meTOproloL SUCCINATE 50 MG (TOPROL XL) TAB PO SCH (09:00)
--- NOTE | 2018-10-31 11:04 | NUR ---
provided prayer and Communion.
[2018-10-31 12:00] VITALS: BP 127/60
[2018-10-31] MEDS: cefTRIAXone 1,000 MG/SWFI 10 ML IV PUSH IV SCH ×2 (12:01)
[2018-10-31] MEDS ORDERED: FURO40TA4 PO (12:29)
[2018-10-31] MEDS ORDERED: METO-370 PO (12:29)
[2018-10-31] MEDS ORDERED: MAGN400T6 PO (12:29)
[2018-10-31] MEDS ORDERED: POTA10CA43 PO (12:29)
--- NOTE | 2018-10-31 12:32 | D/C HH Face to Face Order ---
D/C Face to Face Orders Reconcile Patient Problems Problems Reviewed?: Yes Instructions for Patient Via [facility], Patient Instructions/FollowUp: Fwup with me in 1 week Physician to follow Patient: Raheel Discharge Diet for Home: Cardiac Diet Patient Data-Allergies,Ht & Wt Patient Allergies: Coded Allergies: NKANo Known Allergies (Verified Allergy, Unknown, 09/08/05) Height (Feet): 5 Height (Inches): 0.00 Weight (Pounds): 116 Weight (Ounces): 4.0 Home Health Need/Face to Face Date of Face to Face: Oct 31, 2018 Clinical Findings: Generalized weakness and fatigue, Shortness of breath I have seen Pt [id number]: Yes Discharged To: Home Diagnosis/Conditions: UTI with sepsis Non STEMI Pulmonary Edema Hypertension Patient is Homebound due to: Muscle weakness, Shortness of breath/distress Homebound Status Due to the above stated illness, injury or surgical procedure (medical condition or diagnosis) and associated clinical findings, the patient is homebound because of his/her inability to leave home except with aid of a supportive device and/or person AND leaving the home requires a considerable and taxing effort or is medically contraindicated. Pt req the following assistanc: [facility] Nursing Orders Home Health Services Order: Nursing Services, Physical Therapy-Evaluate & Treat Home Health Infusion Therapy Line Start Date: Oct 25, 2018 Home Health Lab Orders Labs (specify type/freq): CBC, Chem 7 on 11/04/18 Certify Stmt I certify that this patient is under my care and that I, a nurse practitioner or a physician; a teachers' assistant working with me, had a face to face encounter that - meets the physician face to face encounter requirements with this patient as dated. CARRIE ELLIS DO Oct 31, 2018 12:32
--- NOTE | 2018-10-31 13:50 | NUR ---
Important Message from Medicare presented, reviewed, signed and placed in patient chart. Patient and , Bill voiced no intention to appeal and deny any needs or further questions at this time.
--- NOTE | 2018-10-31 16:38 | NUR ---
Arrangements completed for pt to be followed by [facility]. Pt signed Choice form and placed in chart.Pt and family feeling very positive about discharge home and with Home Health plan.
== END 2018-10-31 15:04 | disposition home health service (06) | DRG 871 ==
LOC: EDUNIT# 03:54 → ER 03:56 → 4TH 07:11
PROVIDERS: ADMIT Family Medicine; ATTEND Family Medicine
DX: A41.51 Sepsis due to Escherichia coli [E. coli] (principal); R65.20 Severe sepsis without septic shock; N30.00 Acute cystitis without hematuria; I21.A1 Myocardial infarction type 2; N17.9 Acute kidney failure, unspecified; E87.2 Acidosis; J90 Pleural effusion, not elsewhere classified; J81.1 Chronic pulmonary edema; D70.9 Neutropenia, unspecified; Z66 Do not resuscitate; I48.0 Paroxysmal atrial fibrillation; R11.0 Nausea; J98.01 Acute bronchospasm; I12.9 Hypertensive chronic kidney disease with stage 1 through stage 4 chronic kidney disease, or unspecified chronic kidney disease; N18.9 Chronic kidney disease, unspecified; R07.9 Chest pain, unspecified; R79.89 Other specified abnormal findings of blood chemistry; R09.02 Hypoxemia; E87.6 Hypokalemia; D69.6 Thrombocytopenia, unspecified; E83.42 Hypomagnesemia; E83.39 Other disorders of phosphorus metabolism; R06.01 Orthopnea; Z86.79 Personal history of other diseases of the circulatory system
CPT/HCPCS: 36415; 36600; 71045; 71046; 76700; 76937; 80053; 81000; 82805; 82962; 83605; 83735; 83880; 84100; 84484; 85007; 85025; 85027; 85045; 85379; 85384; 85610; 85730; 86022; 86141; 86618; 86666; 86668; 86757; 87040; 87077; 87081; 87088; 87186; 93005; 93041; 93306; 94640; 94664; 94760; 94762; 96361; 96374